=== PATIENT | female | born 1945 | race Caucasian/White ===

== ENCOUNTER → 2017-01-07 | Outpatient (CLI) | payer OTHER ==
[~2017-01-07] MED LIST: ATV1; CLTP; ETODOLAC; EVENING PRIMROSE; GLUCOSAMINE; LAMISIL; LRT5 PO; MULT-506; PHEN37.585; PRLSR20; [UNRECOGNIZED DRUG - OTHER]
[2017-01-07 17:37] LABS: BASO % 0.4 %; BASO ABS # 0.03 K/uL (0-0.2); COMPLETE YES; EOS % 2.4 %; HEMATOCRIT 40.2 % (37-47); IG% 0.1 %; LYMPH % 33.1 %; LYMPH ABS # 2.32 K/uL (1.2-3.4); MEAN CELL VOLUME 94.8 fL (80-100); MEAN CORPUSCULAR HEMOGLOBIN 31.8 pg (25-34); MEAN CORPUSCULAR HGB CONC 33.6 g/dl (32-36); MEAN PLATELET VOLUME 10.5 fL (7.4-10.4); MONO % 8.1 %; NEUT % 55.9 %; PLATELET COUNT 269 K/uL (130-400); RED BLOOD COUNT 4.24 M/uL (4.2-5.4)
[2017-01-07 17:38] LABS: ALT/SGPT 22 U/L (12-78); AST/SGOT 17 U/L (15-37); BLOOD UREA NITROGEN 11 mg/dl (7-18); BUN/CREATININE RATIO 15.6 (10-20); CALCIUM 8.9 mg/dl (8.5-10.1); CARBON DIOXIDE 27 mmol/L (21-32); CHLORIDE 105 mmol/L (98-107); CREATININE 0.71 mg/dl (0.60-1.20); GLUCOSE 86 mg/dl (70-99); POTASSIUM 3.7 mmol/L (3.5-5.1); SODIUM 141 mmol/L (136-145)
[2017-01-07 17:49] LABS: ALKALINE PHOSPHATASE 77 U/L (45-117); CHOLESTEROL 233 mg/dl (0-200); CHOLESTEROL/HDL RATIO 2.5; HDL CHOLESTEROL 93 mg/dl; LDL CHOLESTEROL CALCULATED 125 mg/dl; TRIGLYCERIDES 75 mg/dl (0-150); VERY LOW DENSITY LIPOPROT CALC 15 mg/dl
[2017-01-08 05:47] LABS: ESTIMATED AVERAGE GLUCOSE 131 mg/dl; HA1C FLAG Normal (Normal)
--- NOTE | 2017-01-15 09:41 | CODING QUERY MEDICAL NECESSITY ---
CQSUPPORTING DIAGNOSIS NEEDED A supporting diagnosis is required for the test/procedure performed on this patient in order for us to be reimbursed by the patient's insurance. Please provide a supporting diagnosis for the following test/procedure listed below next to the test name along with your signature. *If there is no additional diagnosis for this patient that would support the following test/procedure please document that below next to the test/procedure. Test(s)/Procedure(s) that require a supporting diagnosis: DOS 01/07/17 VITAMIN D TEST GLYCATED HEMOGLOBIN TEST Provider Signature: Date: Thank you Estefany Taylor Health Information Management Once completed, please kindly fax back to [phone] For questions please call [phone]
== END | disposition home or self-care (01) ==
LOC: C.LABPBG 15:07
PROVIDERS: ATTEND Neuromusculoskeletal Medicine & OMM
DX: Z00.00 Encounter for general adult medical examination without abnormal findings (principal); E55.9 Vitamin D deficiency, unspecified; R73.03 Prediabetes; R73.09 Other abnormal glucose

== ENCOUNTER → 2017-03-23 | Outpatient (CLI) | payer OTHER ==
[2017-03-23 17:30] LABS: BASO % 0.3 %; BASO ABS # 0.02 K/uL (0-0.2); COMPLETE YES; EOS % 2.7 %; HEMATOCRIT 40.8 % (37-47); IG% 0.3 %; LYMPH % 30.6 %; LYMPH ABS # 2.17 K/uL (1.2-3.4); MEAN CORPUSCULAR HEMOGLOBIN 31.5 pg (25-34); MEAN CORPUSCULAR HGB CONC 32.8 g/dl (32-36); MEAN PLATELET VOLUME 10.5 fL (7.4-10.4); MONO % 10.7 %; NEUT % 55.4 %; PLATELET COUNT 293 K/uL (130-400); RED BLOOD COUNT 4.25 M/uL (4.2-5.4); WHITE BLOOD COUNT 7.09 K/uL (4.8-10.8)
== END | disposition home or self-care (01) ==
LOC: C.LABPBG 14:39
PROVIDERS: ATTEND Physician Assistant
DX: R51 Headache (principal)

== ENCOUNTER → 2017-06-09 | Outpatient (CLI) | payer OTHER ==
[2017-06-09 17:57] LABS: BLOOD UREA NITROGEN 13 mg/dl (7-18); BUN/CREATININE RATIO 16.9 (10-20); CALCIUM 9.3 mg/dl (8.5-10.1); CARBON DIOXIDE 28 mmol/L (21-32); CHLORIDE 109 mmol/L (98-107); CREATININE 0.77 mg/dl (0.60-1.20); GLUCOSE 131 mg/dl (70-99); POTASSIUM 3.9 mmol/L (3.5-5.1); SODIUM 142 mmol/L (136-145)
[2017-06-09 18:00] LABS: CHOLESTEROL 220 mg/dl (0-200); CHOLESTEROL/HDL RATIO 3.1; HDL CHOLESTEROL 70 mg/dl; LDL CHOLESTEROL CALCULATED 133 mg/dl; TRIGLYCERIDES 84 mg/dl (0-150); VERY LOW DENSITY LIPOPROT CALC 17 mg/dl
[2017-06-10 06:13] LABS: ESTIMATED AVERAGE GLUCOSE 126 mg/dl; HA1C FLAG Normal (Normal)
== END | disposition home or self-care (01) ==
LOC: C.LABPBG 14:44
PROVIDERS: ATTEND Physician Assistant
DX: Z00.00 Encounter for general adult medical examination without abnormal findings (principal); R73.03 Prediabetes; E66.01 Morbid (severe) obesity due to excess calories; E88.81 Metabolic syndrome and other insulin resistance

== ENCOUNTER → 2018-01-13 | Outpatient (CLI) | payer OTHER ==
[2018-01-13 17:36] LABS: BASO % 0.6 %; BASO ABS # 0.03 K/uL (0-0.2); EOS % 3.9 %; EOS ABS # 0.21 K/uL (0-0.5); HEMATOCRIT 39.5 % (37-47); HEMOGLOBIN 13.2 g/dL (12.0-16.0); IG# 0.01 K/uL (0.00-0.02); LYMPH % 30.7 %; LYMPH ABS # 1.66 K/uL (1.2-3.4); MEAN CELL VOLUME 97.1 fL (80-100); MEAN CORPUSCULAR HEMOGLOBIN 32.4 pg (25-34); MEAN CORPUSCULAR HGB CONC 33.4 g/dl (32-36); MEAN PLATELET VOLUME 10.6 fL (7.4-10.4); MONO % 9.6 %; MONO ABS # 0.52 K/uL (0.11-0.59); NEUT ABS # 2.97 K/uL (1.4-6.5); PLATELET COUNT 293 K/uL (130-400); RED CELL DISTRIBUTION WIDTH CV 13.7 % (11.5-14.5); RED CELL DISTRIBUTION WIDTH SD 48.9 fL (36.4-46.3)
[2018-01-13 17:59] LABS: BLOOD UREA NITROGEN 14 mg/dl (7-18); CALCIUM 9.1 mg/dl (8.5-10.1); CARBON DIOXIDE 27 mmol/L (21-32); CREATININE 0.66 mg/dl (0.60-1.20); GLUCOSE 122 mg/dl (70-99); POTASSIUM 3.9 mmol/L (3.5-5.1); SODIUM 141 mmol/L (136-145)
[2018-01-13 18:03] LABS: CHOLESTEROL 213 mg/dl (0-200); LDL CHOLESTEROL CALCULATED 109 mg/dl
[2018-01-14 06:47] LABS: HEMOGLOBIN A1C 5.9 % (4.5-5.6)
== END | disposition home or self-care (01) ==
LOC: C.LABPBG 11:24
PROVIDERS: ATTEND Family Medicine
DX: R73.03 Prediabetes (principal); E78.5 Hyperlipidemia, unspecified; E55.9 Vitamin D deficiency, unspecified; R07.89 Other chest pain

== ENCOUNTER 2020-06-25 11:48 | Observation (INO) ==
[2020-06-25] MEDS ORDERED: ONDANSETRON INJ 2 MG/ML 2 ML VIAL IV STA (12:09)
[2020-06-25] MEDS ORDERED: SODIUM CHLORIDE 0.9% 500 ML IV SCH (12:15)
--- NOTE | 2020-06-25 12:23 | Emergency Department Note ---
Impression & Plan Closed pelvic ring fracture, Closed compression fracture of lumbar vertebra ED Provider Note NAME: REJI SHERIFF AGE: 74 SEX: F : 1945 ARRIVES VIA: Walk-In INFORMANT: Patient, the patient's daughter ED PROVIDER(S): Stuart Chong DO CHIEF COMPLAINT: Left groin pain HPI: The patient is a 74-year-old female who presented to the emergency department for an evaluation of left groin pain. The patient states that she started noticing left groin pain approximately 1 to 2 weeks ago. The pain became very severe and she followed up with her primary care physician for these complaints. She had radiographic studies obtained which according to her daughter showed multiple compression fractures in the lumbar spine. The patient states the pain is worsened with any movement. She has been noticing that her gait has become much worse and painful to the point where she is unable to ambulate without assistance at this time. She states the pain is mostly in her left groin. She had similar symptoms in the past with sciatica. The patient is scheduled for an MRI but was unable to have the MRI because she needs an open MRI due to her medical issues. The patient denies having any loss of bowel or bladder continence but does complain of numbness down the lateral aspect of the left leg. She denies having any fevers. She does not have any reported trauma. She denies having any chest pain or difficulty breathing. She states that she has no history of primary malignancy in her past. Patient states she was not given any pain medication by her primary care physician. ROS: See above HPI for pertinent positives & negatives. A total of 10 systems reviewed and were otherwise negative. PAST MEDICAL HISTORY: See Below PAST SURGICAL HISTORY: See Below FAMILY HISTORY: See Below SOCIAL HISTORY: See Below HOME MEDICATIONS: See Below ALLERGIES: See Below VITALS: See Below PHYSICAL EXAMINATION: GENERAL: The patient is awake and alert. She is very anxious appearing and appears to be in significant pain. EYES: The conjunctivae are clear. The pupils are round and reactive. EARS, NOSE, MOUTH AND THROAT: The nose is without any evidence of any deformity. Mucous membranes are moist. Tongue is midline. NECK: The neck is nontender and supple. RESPIRATORY: Normal respiratory effort is noted there is no evidence of wheezing rhonchi or rales CARDIOVASCULAR: Regular rate and rhythm noted there no murmurs rubs or gallops normal S1 normal S2. GASTROINTESTINAL: The abdomen is soft. Abdomen is nontender. BACK: No midline tenderness was appreciated. Range of motion does appear intact but does appear to exacerbate the pain in the left groin. MUSCULOSKELETAL/EXTREMITIES: There is no deformity of the left lower extremity. There is no shortening. The patient has extreme pain with any range of motion testing of the left hip. SKIN: There is no obvious evidence of any rash. Pulses are symmetric in both feet. NEUROLOGIC: Patient is awake alert and oriented x3. Patellar tendon reflexes are 1+ bilaterally. Great toe raise is symmetric. Achilles tendon reflexes appears 1+ bilaterally. MEDICAL DECISION MAKING: The patient is a 74-year-old female who presented to the emergency department for an evaluation of severe left groin pain and back pain. The patient was seen by her primary care physician recently and had radiographic studies which did demonstrate multiple compression fractures of the lumbar spine but these were also noted on radiographs from 2018. Her pain continues to worsen and she was presenting to the emergency department today because of severe ongoing pain. She has very severe pain with any ambulation and appears very uncomfortable. She was treated with IV pain medication in the emergency department. Further r adiographic studies were obtained in the emergency department and appear to show that the patient also has a pelvic fracture. She does not complain of any severe back pain at this time and I do feel that her presentation is more consistent with a pelvic fracture. She was still having very severe pain with any ambulation. She has no trauma. For this reason I did discuss her case with the on-call [facility] group. They will evaluate the patient in the emergency department for further management and disposition. Triage Nursing notes reviewed. Prior medical records reviewed Vital Signs: reviewed and remarkable for elevated blood pressure. Differential diagnosis: Musculoskeletal, disc herniation, fracture, metastatic disease, cord compression, discitis, sciatica, cauda equina, infection, aortic disease, renal colic, gastrointestinal, as well as other pathologies. ER treatment provided: See below Diagnostics interpreted by me: ECG: none Cardiac Monitoring: An order was placed for continuous cardiac monitoring. The monitor shows a rate of 95 with rhythm. Laboratory studies: As stated above and show below. Imaging studies: See below Consultation(s): 1400: [facility] was notified about the patient's condition. ED COURSE: Procedures: none PDMP:reviewed and no issues Critical Care: None Past Med/Surg History Medical History Anxiety Arthritis Dyslipidemia GERD without esophagitis Lichen sclerosus Lymphedema Metabolic syndrome Obesity Osteoarthritis of subtalar joint Osteoporosis Prediabetes Sciatica of right side Venous insufficiency (chronic) (peripheral) Vitamin D deficiency Surgical History H/O colonoscopy H/O tubal ligation 1973. History of breast biopsy incisional breast biopsy. Family History Sister Parkinson disease Cardiac disorder Mother Coronary heart disease Cancer Esophagus. Myocardial infarction Father Myocardial infarction Parkinson disease Social History Smoking Status: Never smoker Hx Alcohol Use: No Hx Substance Use: No Preferred Language: Mongolian Communication Ability: Effective Visual Impairment: Partially Limited Hearing Ability: Normal marital status: / Current Living Situation: Alone current occupational status: retired Feels Safe at Home: Yes Dental Care, Regularly: Yes Physical Activity Frequency: Does not Exercise Seatbelt Use: always Sunscreen Use: Yes Allergies Allergies Allergy/AdvReac Type Severity Reaction Status Date / Time peanut Allergy Severe Anaphylaxis Verified 06/13/20 11:11 soy Allergy Intermediate hives Verified 06/13/20 11:11 codeine Allergy Mild hives Verified 06/13/20 11:11 risedronate sodium Allergy Unknown Verified 06/13/20 11:11 [From Actonel] alendronate sodium AdvReac Intermediate myalgia Verified 06/13/20 11:11 [From Fosamax] Home Meds Home Medications Medication Instructions Recorded Confirmed aspirin 81 mg tablet,delayed 81 mg PO DAILY 04/07/19 06/13/20 release cholecalciferol (vitamin D3) 50 2,000 units PO DAILY 04/07/19 06/13/20 mcg (2,000 unit) tablet cyanocobalamin (vitamin B-12) 100 100 mcg PO DAILY tab 04/07/19 06/13/20 mcg tablet fluocinonide 0.05 % topical 1 appln TOP BID PRN 04/07/19 06/13/20 ointment ketoconazole 2 % topical cream 1 appln TOPICAL DAILY gm 04/07/19 06/13/20 omega-3 fatty acids 1,000 mg 1,000 mg PO DAILY 04/07/19 06/13/20 capsule turmeric root extract 500 mg 1,000 mg PO DAILY cap 04/07/19 06/13/20 capsule glucosamine-chondroitin 500 mg-400 1 cap PO BID 07/28/19 06/13/20 mg capsule calcium citrate-vitamin D3 500 mg 2 tab PO DAILY tab 07/29/19 06/13/20 calcium-400 unit chewable tablet triamcinolone acetonide 0.1 % See Rx Instructions TOP DAILY 07/29/19 06/13/20 topical cream Previous Rx's Medication Instructions Recorded compress.stocking,knee,reg,lrg #2 ea 07/07/19 pantoprazole 40 mg tablet,delayed 40 mg PO DAILY #90 tab 09/19/19 release liraglutide 0.6 mg/0.1 mL (18 mg/3 1.8 mg SQ DAILY #9 ml 12/12/19 mL) subcutaneous pen injector metformin 500 mg tablet 500 mg PO DAILY #90 tab 02/27/20 simvastatin 20 mg tablet 20 mg PO DAILY #90 tab 02/27/20 epinephrine 0.3 mg/0.3 mL 0.3 mg IM Q10M PRN #2 ea 05/07/20 injection, auto-injector betamethasone dipropionate 0.05 % See Rx Instructions .ROUTE 06/11/20 topical cream .COMPLEX #45 gram venlafaxine 37.5 mg 37.5 mg PO DAILY #30 cap 06/17/20 capsule,extended release 24 hr baclofen 5 mg tablet 5 mg PO TID PRN #30 tab 06/25/20 Results & Data (ED) Vital Signs Vital Signs - 24 hr 06/25/20 12:02 Temperature 36.9 C Temperature Source Oral Pulse Rate 95 H Respiratory Rate 20 Blood Pressure 172/75 H Blood Pressure Mean 107 Pulse Oximetry 98 Oxygen Delivery Method Room Air Sepsis Recent Fever Within 48 Hours No Sepsis New/Unexplained Change in Mental Status N/A Sepsis Action Taken by Nursing No Action Required Home Medications Current Medication List: was personally reviewed by me Laboratory Data Attestation: I reviewed the patient's lab results. Result diagrams: 06/25/20 12:51 06/25/20 12:51 Lab Results 06/25/20 06/25/20 06/25/20 Range/Units 12:51 12:51 12:51 WBC 6.90 (4.8-10.8) K/uL RBC 4.51 (4.2-5.4) M/uL Hgb 14.1 (12.0-16.0) g/dL Hct 42.1 (37-47) % MCV 93.3 (80-100) fL MCH 31.3 (25-34) pg MCHC 33.5 (32-36) g/dL RDW Std Deviation 48.8 H (36.4-46.3) fL RDW Coeff of Lizzeth 14.2 (11.5-14.5) % Plt Count 288 (130-400) K/uL MPV 9.5 (7.4-10.4) fL Immature Gran % (Auto) 0.1 % Neut % (Auto) 66.2 % Lymph % (Auto) 21.7 % Davison % (Auto) 11.0 % Eos % (Auto) 0.7 % Baso % (Auto) 0.3 % Neut # (Auto) 4.56 (1.4-6.5) K/uL Lymph # (Auto) 1.50 (1.2-3.4) K/uL Davison # (Auto) 0.76 H (0.11-0.59) K/uL Eos # (Auto) 0.05 (0-0.5) K/uL Baso # (Auto) 0.02 (0-0.2) K/uL Immature Gran # (Auto) 0.01 (0.00-0.02) K/uL PT Cancelled INR Cancelled APTT Cancelled PTT Ratio Cancelled Sodium 138 (136-145) mmol/L Potassium 3.8 (3.5-5.1) mmol/L Chloride 106 (98-107) mmol/L Carbon Dioxide 25 (21-32) mmol/L Anion Gap 7.0 (3-11) BUN 12 (7-18) mg/dl Creatinine 0.81 (0.6-1.2) mg/dl Est Cr Clr Drug Dosing Not Reportable Est GFR ( Amer) 83.5 Est GFR (Non-Af Amer) 72.1 BUN/Creatinine Ratio 14.4 (10-20) Glucose 104 H (70-99) mg/dl Calcium 9.8 (8.5-10.1) mg/dl Total Bilirubin 0.8 (0.2-1) mg/dl AST 16 (15-37) U/L ALT 16 (12-78) U/L Alkaline Phosphatase 66 (45-117) U/L Total Protein 8.1 (6.4-8.2) gm/dl Albumin 3.8 (3.4-5.0) gm/dl Globulin 4.3 H (2.5-4.0) gm/dl Albumin/Globulin Ratio 0.9 (0.9-2) Lipase 177 (73-393) U/L Urine Color Urine Appearance (Clear) Urine pH (4.5-7.5) Ur Specific [place] (1.000-1.030) Urine Protein (Negative) Urine Glucose (UA) (Negative) Urine Ketones (Negative) Urine Blood (Negative) Urine Nitrite (Negative) Urine Bilirubin (Negative) Urine Urobilinogen (Negative) Ur Leukocyte Esterase (Negative) Urine WBC (Auto) (0-5) /hpf Urine RBC (Auto) (0-4) /hpf U Hyaline Cast (Auto) (0-5) /lpf U Epithel Cells (Auto) (0-5) /lpf Urine Bacteria (Auto) (Negative) 06/25/20 Range/Units 12:51 WBC (4.8-10.8) K/uL RBC (4.2-5.4) M/uL Hgb (12.0-16.0) g/dL Hct (37-47) % MCV (80-100) fL MCH (25-34) pg MCHC (32-36) g/dL RDW Std Deviation (36.4-46.3) fL RDW Coeff of Lizzeth (11.5-14.5) % Plt Count (130-400) K/uL MPV (7.4-10.4) fL Immature Gran % (Auto) % Neut % (Auto) % Lymph % (Auto) % Davison % (Auto) % Eos % (Auto) % Baso % (Auto) % Neut # (Auto) (1.4-6.5) K/uL Lymph # (Auto) (1.2-3.4) K/uL Davison # (Auto) (0.11-0.59) K/uL Eos # (Auto) (0-0.5) K/uL Baso # (Auto) (0-0.2) K/uL Immature Gran # (Auto) (0.00-0.02) K/uL PT INR APTT PTT Ratio Sodium (136-145) mmol/L Potassium (3.5-5.1) mmol/L Chloride (98-107) mmol/L Carbon Dioxide (21-32) mmol/L Anion Gap (3-11) BUN (7-18) mg/dl Creatinine (0.6-1.2) mg/dl Est Cr Clr Drug Dosing Est GFR ( Amer) Est GFR (Non-Af Amer) BUN/Creatinine Ratio (10-20) Glucose (70-99) mg/dl Calcium (8.5-10.1) mg/dl Total Bilirubin (0.2-1) mg/dl AST (15-37) U/L ALT (12-78) U/L Alkaline Phosphatase (45-117) U/L Total Protein (6.4-8.2) gm/dl Albumin (3.4-5.0) gm/dl Globulin (2.5-4.0) gm/dl Albumin/Globulin Ratio (0.9-2) Lipase (73-393) U/L Urine Color Yellow Urine Appearance Cloudy A (Clear) Urine pH 5.0 (4.5-7.5) Ur Specific [place] 1.016 (1.000-1.030) Urine Protein Negative (Negative) Urine Glucose (UA) Negative (Negative) Urine Ketones 1+ H (Negative) Urine Blood Negative (Negative) Urine Nitrite Negative (Negative) Urine Bilirubin Negative (Negative) Urine Urobilinogen Negative (Negative) Ur Leukocyte Esterase Trace H (Negative) Urine WBC (Auto) 1-5 (0-5) /hpf Urine RBC (Auto) 0-4 (0-4) /hpf U Hyaline Cast (Auto) 1-5 (0-5) /lpf U Epithel Cells (Auto) >30 H (0-5) /lpf Urine Bacteria (Auto) Negative (Negative) Administered Medications Morphine Sulfate (Morphine Sulfate 4 Mg/Ml 1 Ml Carp\Vial) 4 mg IV Q15M PRN PRN Reason: Pain Stop: 07/09/20 12:08 Last Admin: 06/25/20 13:54 Dose: 4 mg Documented by: [id number] Admin: 06/25/20 12:48 Dose: 4 mg Documented by: [id number] Discontinued Medications Sodium Chloride (Nss) 500 mls @ 999 mls/hr IV .Q31M JOCY Stop: 06/25/20 12:45 Last Infusion: 06/25/20 13:18 Dose: 0 mls/hr Documented by: [id number] Admin: 06/25/20 12:47 Dose: 999 mls/hr Documented by: [id number] Ondansetron HCl (Ondansetron Inj 2 Mg/Ml 2 Ml Vial) 4 mg IV NOW STA Stop: 06/25/20 12:10 Last Admin: 06/25/20 12:47 Dose: 4 mg Documented by: [id number] Imaging Data Radiologist's Impression: CT OF THE LUMBAR SPINE CLINICAL HISTORY: Pain. History of compression fracture. COMPARISON STUDY: Lumbar spine radiographs September 07, 2018. TECHNIQUE: Helical axial images of the lumbar spine were obtained. Sagittal and coronal reconstructions were viewed. Automated exposure control was utilized for the study. A dose lowering technique was utilized adhering to the principles of ALARA. FINDINGS: For purposes of numbering on this exam, the L5-S1 disc space is assigned to axial image 238 of 294. There is mild rightward curvature of the lumbar spine. Moderate L2, L4 and L5 compression fractures are chronic. These were shown on radiographs of September 07, 2018. No acute lumbar spine fracture is noted. There is severe multilevel facet arthrosis. There is mild to moderate m ultilevel disc space narrowing and osteophytosis. Old bilateral sacral insufficiency fractures are noted. These have healed. No suspicious osseous lesions are noted. IMPRESSION: 1. No acute lumbar spine fracture or subluxation. 2. Redemonstration of old moderate L2, L4 and L5 compression fractures which were shown on radiographs of September 07, 2018. 2. Old bilateral sacral insufficiency fractures. 2. Severe multilevel facet arthrosis. Moderate multilevel degenerative disc disease. ACT 112: Negative or not required by law. Electronically signed by: Panda Shaikh M.D. 06/25/2020 1:19 PM Dictated: 06/25/20 1310 Transcribed: 06/25/[address] DOSE: 1523.26 mGy.cm HISTORY: left groin pain TECHNIQUE: Multiaxial CT images of the pelvis were performed and reformatted in the sagittal and coronal plane without the use of contrast. A dose lowering technique was utilized adhering to the principles of ALARA. COMPARISON: None. FINDINGS: Nondisplaced fracture within the left inferior pubic ramus which demonstrates mild callus formation consistent with a healing fracture. There is also a subacute fracture within the left superior pubic ramus at the junction of the anterior column of the acetabulum. There is mild soft tissue thickening at this location. This fracture is also nondisplaced. Old right pubic bone and old sacral insufficiency fractures are also noted. No fracture or dislocation within the right or left proximal femur. The visualized pelvic organs are within normal limits. No pelvic free fluid. No hip effusions. Colonic diverticulosis. Please refer to the same day lumbar spine CT for further evaluation of the lumbar spine compression fractures. The bones are osteopenic. IMPRESSION: 1. Subacute/healing nondisplaced left pubic ring fractures. 2. Old, healed right pubic ring and old sacral insufficiency fractures. 3. Please refer to the same day lumbar spine CT for further evaluation of the lumbar spine compression fractures. ACT 112: Negative or not required by law. Electronically signed by: Km Pal M.D. 06/25/2020 1:18 PM Dictated: 06/25/20 1313 Transcribed: 06/25/20 1313 Blood Pressure Blood Pressure Findings: Elevated blood pressure Blood Pressure Disposition: further management by hospitalist Discharge Plan Visit Data Chief Complaint: Back Injury/Pain Stated Complaint: 2 FX IN SPINE,CAN'T WALK ED Provider: Stuart Chong Discharge Problem: Closed pelvic ring fracture, Closed compression fracture of lumbar vertebra Patient Disposition: Being Evaluated by Hospitalist Condition: Good Forms Stand Alone Forms: My [employer] Prescriptions Prescriptions: No Action (DME) compress.stocking,knee,reg,lrg misc See Dose Instructions .ROUTE .MEDSUPPLY Qty: 2 RF: 0 liraglutide 0.6 mg/0.1 mL (18 mg/3 mL) pen injector 1.8 mg SQ DAILY Qty: 9 RF: 3 metformin 500 mg tablet 500 mg PO DAILY Qty: 90 RF: 1 simvastatin 20 mg tablet 20 mg PO DAILY Qty: 90 RF: 1 epinephrine [EpiPen 2-Ty] 0.3 mg/0.3 mL auto-injector 0.3 mg IM Q10M PRN (Reason: anaphylaxis) Qty: 2 RF: 1 betamethasone dipropionate 0.05 % cream See Rx Instructions .ROUTE .COMPLEX Qty: 45 RF: 0 baclofen 5 mg tablet 5 mg PO TID PRN (Reason: muscle spasm) Qty: 30 RF: 2 turmeric root extract 500 mg capsule 1,000 mg PO DAILY RF: 0 aspirin [Adult Aspirin Regimen] 81 mg tablet,delayed release (DR/EC) 81 mg PO DAILY RF: 0 cholecalciferol (vitamin D3) 2,000 unit tablet 2,000 units PO DAILY RF: 0 fluocinonide 0.05 % ointment 1 appln TOP BID PRN (Reason: itching) RF: 0 ketoconazole 2 % cream 1 appln topical DAILY RF: 0 omega-3 fatty acids [Fish Oil Concentrate] 1,000 mg capsule 1,000 mg PO DAILY RF: 0 cyanocobalamin (vitamin B-12) 100 mcg tablet 100 mcg PO DAILY RF: 0 calcium citrate-vitamin D3 500 mg calcium -400 unit tablet,chewable 2 tab PO DAILY RF: 0 venlafaxine 37.5 mg capsule,extended release 24hr 37.5 mg PO DAILY Qty: 30 RF: 2 glucosamine-chondroitin 500-400 mg capsule 1 cap PO BID RF: 0 triamcinolone acetonide 0.1 % cream See Rx Instructions TOP DAILY RF: 0 pantoprazole 40 mg tablet,delayed release (DR/EC) 40 mg PO DAILY Qty: 90 RF: 3 Referrals Referrals: Gillian Lin DO [Primary Care Provider] - Discharge Problem: Closed pelvic ring fracture Qualifiers: Encounter type: initial encounter Qualified Code(s): S32.810A - Multiple fractures of pelvis with stable disruption of pelvic ring, initial encounter for closed fracture Closed compression fracture of lumbar vertebra Qualifiers: Encounter type: initial encounter Lumbar vertebra fracture level: L2 Qualified Code(s): S32.020A - Wedge compression fracture of second lumbar vertebra, initial encounter for closed fracture
[2020-06-25] MEDS: MoRPHine SULFATE 4 MG/ML 1 ML CARP\\VIAL IV PRN ×2 (12:48→13:54)
[2020-06-25 13:05] LABS: Basophils # (auto) 0.02 K/uL (0-0.2); Basophils % (auto) 0.3 %; Eosinophils # (auto) 0.05 K/uL (0-0.5); Eosinophils % (auto) 0.7 %; Hematocrit (blood only) 42.1 % (37-47); Hemoglobin 14.1 g/dL (12.0-16.0); Immature Granulocytes # (auto) 0.01 K/uL (0.00-0.02); Immature Granulocytes % (auto) 0.1 %; Lymphocytes % (auto) 21.7 %; Mean Corpuscular Hemoglobin 31.3 pg (25-34); Mean Corpuscular Hgb Conc 33.5 g/dL (32-36); Mean Corpuscular Volume 93.3 fL (80-100); Mean Platelet Volume 9.5 fL (7.4-10.4); Monocytes # (auto) 0.76 K/uL (0.11-0.59); Neutrophils # (auto) 4.56 K/uL (1.4-6.5); Neutrophils % (auto) 66.2 %; Platelet Count 288 K/uL (130-400); RDW Coefficient of Variation 14.2 % (11.5-14.5); RDW Standard Deviation 48.8 fL (36.4-46.3); Red Blood Count 4.51 M/uL (4.2-5.4)
[2020-06-25 13:15] LABS: Appearance Urine Cloudy (Clear); Bacteria Urine Automated Negative (Negative); Bilirubin Urine Negative (Negative); Blood Urine Negative (Negative); Color Urine Yellow; Epithelial Cell Urine Auto >30 /lpf (0-5); Glucose Urine UA Negative (Negative); Ketones Urine 1+ (Negative); Leukocyte Esterase Urine Trace (Negative); Nitrite Urine Negative (Negative); Protein Urine Negative (Negative); RBC Urine Automated 0-4 /hpf (0-4); Specific Gravity Urine 1.016 (1.000-1.030); Urobilinogen Urine Negative (Negative)
--- NOTE | 2020-06-25 13:20 | CT Scan Report ---
CT OF THE LUMBAR SPINE CLINICAL HISTORY: Pain. History of compression fracture. COMPARISON STUDY: Lumbar spine radiographs September 07, 2018. TECHNIQUE: Helical axial images of the lumbar spine were obtained. Sagittal and coronal reconstruct ions were viewed. Automated exposure control was utilized for the study. A dose lowering technique was utilized adhering to the principles of ALARA. FINDINGS: For purposes of numbering on this exam, the L5-S1 disc space is assigned to axial image 238 of 294. There is mild rightward curvature of the lumbar spine. Moderate L2, L4 and L5 compression fr actures are chronic. These were shown on radiographs of September 07, 2018. No acute lumbar spine fract ure is noted. There is severe multilevel facet arthrosis. There is mild to moderate multilevel disc s pace narrowing and osteophytosis. Old bilateral sacral insufficiency fractures are noted. These have healed. No suspicious osseous lesions are noted. IMPRESSION: 1. No acute lumbar spine fracture or subluxation. 2. Redemonstration of old moderate L2, L4 and L5 compression fractures which were shown on radiograph s of September 07, 2018. 2. Old bilateral sacral insufficiency fractures. 2. Severe multilevel facet arthrosis. Moderate multilevel degenerative disc disease. ACT 112: Negative or not required by law. Electronically signed by: Panda Shaikh M.D. 06/25/2020 1:19 PM
--- NOTE | 2020-06-25 13:20 | CT Scan Report ---
PELVIS CT CT DOSE: 1523.26 mGy.cm HISTORY: left groin pain TECHNIQUE: Multiaxial CT images of the pelvis were performed and reformatted in the sagittal and carlo nal plane without the use of contrast. A dose lowering technique was utilized adhering to the princi ples of PAUL. COMPARISON: None. FINDINGS: Nondisplaced fracture within the left inferior pubic ramus which demonstrates mild callus f ormation consistent with a healing fracture. There is also a subacute fracture within the left superi or pubic ramus at the junction of the anterior column of the acetabulum. There is mild soft tissue th ickening at this location. This fracture is also nondisplaced. Old right pubic bone and old sacral in sufficiency fractures are also noted. No fracture or dislocation within the right or left proximal fe mur. The visualized pelvic organs are within normal limits. No pelvic free fluid. No hip effusions. C olonic diverticulosis. Please refer to the same day lumbar spine CT for further evaluation of the lum bar spine compression fractures. The bones are osteopenic. IMPRESSION: 1. Subacute/healing nondisplaced left pubic ring fractures. 2. Old, healed right pubic ring and old sacral insufficiency fractures. 3. Please refer to the same day lumbar spine CT for further evaluation of the lumbar spine compressio n fractures. ACT 112: Negative or not required by law. Electronically signed by: Km Pal M.D. 06/25/2020 1:18 PM
[2020-06-25 13:22] LABS: Alanine Aminotransferase 16 U/L (12-78); Albumin Level 3.8 gm/dl (3.4-5.0); Aspartate Aminotransferase 16 U/L (15-37); BUN Creatinine Ratio 14.4 (10-20); Blood Urea Nitrogen 12 mg/dl (7-18); Calcium 9.8 mg/dl (8.5-10.1); Carbon Dioxide 25 mmol/L (21-32); Chloride 106 mmol/L (98-107); Est GFR (African American) 83.5; Est GFR (Non-African American) 72.1; Glucose 104 mg/dl (70-99); Lipase 177 U/L (73-393); Potassium 3.8 mmol/L (3.5-5.1); Sodium 138 mmol/L (136-145)
[2020-06-25 13:25] LABS: Albumin Globulin Ratio 0.9 (0.9-2); Alkaline Phosphatase 66 U/L (45-117); Bilirubin,Total 0.8 mg/dl (0.2-1); Globulin 4.3 gm/dl (2.5-4.0); Total Protein 8.1 gm/dl (6.4-8.2)
[2020-06-25 14:23] LABS: Partial Thromboplastin Ratio 0.9; Partial Thromboplastin Time 24.4 Seconds (21.0-31.0); Prothrombin Time 10.9 Seconds (9.0-12.0)
--- NOTE | 2020-06-25 16:05 | History & Physical Report ---
Date of Service June 25, 2020 Assessment & Plan (1) Closed pelvic ring fracture: left sided, intractable pain, will try scheduled tylenol, oxycodone, and lidodern, PT/OT evalation, will consider if rehab is needed (2) Closed compression fracture of lumbar vertebra: does not seem to be causing acute pain, has a history of osteoporosis on prolia, only has received one treatment (3) DEYSI on CPAP: will continue on home settings (4) Dyslipidemia: continue zocor (5) GERD without esophagitis: worsened with ibprofen, will have ppi (6) Prediabetes: continues on victoza and metformin, will also offer ssi and check A1C (7) DVT prophylaxis: Admission and Anticipated Discharge Date Admission Date: [facility] History of Present Illness Primary Care Provider: DO Curt Morse CC from ER notes "74-year-old female who presented to the emergency department for an evaluation of left groin pain. The patient states that she started noticing left groin pain approximately 1 to 2 weeks ago. The pain became very severe and she followed up with her primary care physician for these complaints. She had radiographic studies obtained which according to her daughter showed multiple compression fractures in the lumbar spine. The patient states the pain is worsened with any movement. She has been noticing that her gait has become much worse and painful to the point where she is unable to ambulate without assistance at this time. She states the pain is mostly in her left groin. She had similar symptoms in the past with sciatica. The patient is scheduled for an MRI but was unable to have the MRI because she needs an open MRI due to her medical issues. The patient denies having any loss of bowel or bladder continence but does complain of numbness down the lateral aspect of the left leg. She denies having any fevers. She does not have any reported trauma. She denies having any chest pain or difficulty breathing. She states that she has no history of primary malignancy in her past. Patient states she was not given any pain medication by her primary care physician."" the pt has been trying scheduled tylenol and ibuprofen without help bit with worsening dyspepsia, she has had no melena. 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 Allergies Allergy/AdvReac Type Severity Reaction Status Date / Time peanut Allergy Severe Anaphylaxis Verified 06/25/20 14:09 soy Allergy Intermediate hives Verified 06/25/20 14:09 codeine Allergy Mild hives Verified 06/25/20 14:09 risedronate sodium Allergy Unknown Verified 06/25/20 14:09 [From Actonel] alendronate sodium AdvReac Intermediate myalgia Verified 06/25/20 14:09 [From Fosamax] Home Medications Home Medications Medication Instructions Recorded Confirmed Type aspirin 81 mg tablet,delayed 81 mg PO DAILY 04/07/19 06/25/20 History release cholecalciferol (vitamin D3) 50 2,000 units PO DAILY 04/07/19 06/25/20 History mcg (2,000 unit) tablet cyanocobalamin (vitamin B-12) 100 100 mcg PO DAILY tab 04/07/19 06/25/20 History mcg tablet fluocinonide 0.05 % topical 1 appln TOP BID PRN 04/07/19 06/25/20 History ointment ketoconazole 2 % topical cream 1 appln TOPICAL DAILY gm 04/07/19 06/25/20 History omega-3 fatty acids 1,000 mg 1,000 mg PO DAILY 04/07/19 06/25/20 History capsule turmeric root extract 500 mg 500 mg PO DAILY cap 04/07/19 06/25/20 History capsule compress.stocking,knee,reg,lrg #2 ea 07/07/19 05/21/20 Rx glucosamine-chondroitin 500 mg-400 1 cap PO BID 07/28/19 06/25/20 History mg capsule calcium citrate-vitamin D3 500 mg 2 tab PO DAILY tab 07/29/19 06/25/20 History calcium-400 unit chewable tablet triamcinolone acetonide 0.1 % See Rx Instructions TOP DAILY 07/29/19 06/25/20 History topical cream pantoprazole 40 mg tablet,delayed 40 mg PO DAILY #90 tab 09/19/19 06/25/20 Rx release liraglutide 0.6 mg/0.1 mL (18 mg/3 1.8 mg SQ DAILY #9 ml 12/12/19 06/25/20 Rx mL) subcutaneous pen injector metformin 500 mg tablet 500 mg PO DAILY #90 tab 02/27/20 06/25/20 Rx simvastatin 20 mg tablet 20 mg PO DAILY #90 tab 02/27/20 06/25/20 Rx epinephrine 0.3 mg/0.3 mL 0.3 mg IM Q10M PRN #2 ea 05/07/20 06/25/20 Rx injection, auto-injector betamethasone dipropionate 0.05 % See Rx Instructions .ROUTE 06/11/20 06/25/20 Rx topical cream .COMPLEX #45 gram venlafaxine 37.5 mg 37.5 mg PO DAILY #30 cap 06/17/20 06/25/20 Rx capsule,extended release 24 hr Past Med/Surg History Medical History (Updated 06/25/20 @ 16:04 by Jose M Esteves MD) Anxiety Arthritis Dyslipidemia GERD without esophagitis Lichen sclerosus Lymphedema Metabolic syndrome Obesity Osteoarthritis of subtalar joint Osteoporosis Prediabetes Sciatica of right side Venous insufficiency (chronic) (peripheral) Vitamin D deficiency Surgical History H/O colonoscopy H/O tubal ligation 1973. History of breast biopsy incisional breast biopsy. Family History Sister Parkinson disease Cardiac disorder Mother Coronary heart disease Cancer Esophagus. Myocardial infarction Father Myocardial infarction Parkinson disease Social History Smoking Status: Never smoker Hx Alcohol Use: No Hx Substance Use: No Preferred Language: Bolivian Communication Ability: Effective Visual Impairment: Partially Limited Hearing Ability: Normal Workday Director Required: No Beliefs That Will Affect Care: None marital status: / Current Living Situation: Alone and Significant Other Current Living Situation Comment: lives with s/o current occupational status: retired Other Information That Helps Us Care for You: No Feels Safe at Home: Yes Safety Concerns: Feels Safe At This Time Dental Care, Regularly: Yes Physical Activity Frequency: Does not Exercise Seatbelt Use: always Sunscreen Use: Yes Review of Systems Review of Systems: Mild to moderate distress and fatigue no headache, blurry or double vision no speech or swallowing issues no chest pain, pressure or palpitations no shortness of breath, cough or wheezes no abdominal pain, nausea or vomiting, diarrhea or constipation no dysuria, hematuria or frequency Left anterior groin discomfort worse with movement no shortening or rotation of leg no back pain, CVA tenderness or radicular pain no bruising, bleeding or rashes no focal signs of weakness or numbness or altered sensation no complaints or anxiety or depression. Physical Exam Physical Exam: The patient appeared well nourished and normally developed. Her pain is reasonably well controlled Vital signs as documented. Head exam is normocephalic atraumatic no scleral icterus Neck is without JVD, thyromegaly, or carotid bruits. Lungs are clear to auscultation, no focal loss of breath sounds Cardiac exam, Rhythm is regular.. No murmurs, rubs or gallops. Abdominal exam reveals normal bowel sounds, soft non tender, no masses Extremities are nonedematous and both pedal pulses are normal. She does have left anterior groin pain Neurologic exam is alert and oriented, no focal loss of strength or sensation Skin is without bruises or rashes Psychologically is without concerns for anxiety or depression Results & Data Results & Data ([facility]) Vital Signs (Past 12 Hours) Vital Signs Temp Pulse Pulse Resp BP BP Pulse Ox 06/25/20 14:55 88 191/91 H 95 06/25/20 14:07 85 18 195/106 H 99 06/25/20 14:06 99 06/25/20 12:02 98.4 F 95 H 20 172/[address] 06/25/20 IMPRESSION: 1. Subacute/healing nondisplaced left pubic ring fractures. 2. Old, healed right pubic ring and old sacral insufficiency fractures Lumbar CT 06/25/20 IMPRESSION: 1. No acute lumbar spine fracture or subluxation. 2. Redemonstration of old moderate L2, L4 and L5 compression fractures which were shown on radiographs of September 07, 2018. 3. Old bilateral sacral insufficiency fractures. 4. Severe multilevel facet arthrosis. Moderate multilevel degenerative disc disease. PG Care Time/CCT Total # of Minutes Spent Total Time Spent with Patient: Total time spent is greater than 50% in coord ination of care (as documented) at patient's floor/unit and/or counseling patient: Coding Level of Care Code 39862 OBS Care - Level 2 Diagnoses Closed pelvic ring fracture S32.810A Encounter type: initial encounter Closed compression fracture of lumbar vertebra S32.020A Encounter type: initial encounter Lumbar vertebra fracture level: L2 DEYSI on CPAP G47.33; Z99.89 Dyslipidemia E78.5 GERD without esophagitis K21.9 Prediabetes R73.03 DVT prophylaxis Z29.9 (1) Closed pelvic ring fracture Encounter type: initial encounter Qualified Code(s): S32.810A - Multiple fractures of pelvis with stable disruption of pelvic ring, initial encounter for closed fracture (2) Closed compression fracture of lumbar vertebra Encounter type: initial encounter Lumbar vertebra fracture level: L2 Q ualified Code(s): S32.020A - Wedge compression fracture of second lumbar vertebra, initial encounter for closed fracture
[2020-06-25] MEDS ORDERED: MoRPHine SULFATE 2 MG/ML CARP IV PRN (17:33)
[2020-06-25] MEDS ORDERED: ALUMINUM/MAGNESIUM SUSP 30 ML UDC PO PRN (17:33)
[2020-06-25] MEDS ORDERED: DEXTROSE 50% 50 ML SYRINGE IV PRN (17:33)
[2020-06-25] MEDS ORDERED: MoRPHine SULFATE 4 MG/ML 1 ML CARP\\VIAL IV PRN (17:33)
[2020-06-25] MEDS ORDERED: GLUCOSE 10 TABS/TUBE PO PRN (17:33)
[2020-06-25] MEDS ORDERED: HydrALAZINE HCL 20 MG/ML VIAL IV PRN (17:33)
[2020-06-25] MEDS ORDERED: GLUCOSE 40% GEL 15 GM TUBE PO PRN (17:33)
[2020-06-25] MEDS ORDERED: ONDANSETRON INJ 2 MG/ML 2 ML VIAL IV PRN (17:33)
[2020-06-25] MEDS ORDERED: CARBOHYDRATES FOR HYPOGLYCEMIA PO PRN (17:33)
[2020-06-25] MEDS ORDERED: GLUCAGON FOR INJ 1 MG VIAL SQ PRN (17:33)
[2020-06-25] MEDS ORDERED: PATIENT'S WEIGHT NEEDED SCH (18:00)
[2020-06-25] MEDS ORDERED: Nursing to Pharmacy Communication SCH (18:45)
[2020-06-25] MEDS ORDERED: ENOXAPARIN INJ 40 MG/0.4 ML SYR SQ ONE (19:00)
[2020-06-25] MEDS: LIDOCAINE 5% 1 PATCH TD SCH (19:30)
[2020-06-25] MEDS: ACETAMINOPHEN 500 MG TAB PO SCH (19:32)
[2020-06-25] MEDS: INSULIN ASPART 100 UNITS/ML 3 ML PEN SC SCH ×2 (19:39→21:25)
[2020-06-25] MEDS: PANTOprazole 40 MG TAB PO SCH (21:19)
[2020-06-25] MEDS: GLUCOSAMINE SULFATE 500 MG CAP PO SCH (21:20)
[2020-06-26] MEDS: TRIAMCINOLONE ACET 0.025% CR 15 GM TUBE EXT PRN ×2 (00:02→23:53)
[2020-06-26] MEDS: ACETAMINOPHEN 500 MG TAB PO SCH ×4 (00:03→21:02)
[2020-06-26 05:43] LABS: Estimated Average Glucose 128 mg/dl; Hemoglobin A1C 6.1 % (4.5-5.6)
--- NOTE | 2020-06-26 08:34 | Hospitalist Progress Note ---
Date of Service June 26, 2020 Assessment & Plan (1) Closed pelvic ring fracture: 74-year-old female with a history of DEYSI on CPAP, anxiety, dyslipidemia, obesity, osteoporosis and vitamin D deficiency with multiple previous fractures admitted for groin pain secondary to closed pelvic ring fracture. Closed fracture of left pelvic ring without injury - pathologic fracture Identified on CT pelvis and emergency department. Closed, nondisplaced, healing. Old healing right pubic ring and sacral insufficiency fractures also present. CT L-spine showing old moderate compression fractures of L2, L4, L5. - Likely from osteoporosis. Pain control with 1 g Tylenol every 8, Roxicodone 10 mg every 6 as needed, morphine 2 and 4 mg IV every 2 as needed Orthopedic consult: Medical management, will need rehabilitation PT OT consults Ambulate as tolerated DM 2/metabolic syndrome Continue metformin, liraglutide per home regimen. Sliding scale insulin for high blood sugars. Continue aspirin and statin GERD Continue PPI Anxiety Continue venlafaxine from home regimen Osteoporosis -On Denosumab as outpatient. Continue vitamin D supplementation and calcium multivitamin DVT prophylaxis: Lovenox FEN/GI: Carb count diet CODE STATUS: Full code Dispo: MedSurg, placement to rehab (2) Closed compression fracture of lumbar vertebra: (3) DEYSI on CPAP: (4) Obesity: Admission and Anticipated Discharge Date Admission Date: June 25, 2020 Supervising Physician Co-Signing Physician Notes Resident Physician Supervision Note: I independently interviewed and examined the patient and verified the cantrell history and physical, reviewed labs and image studies, discussed the case with the resident Dr. Domingo and agree with the findings and care plan. Subjective No pain when sitting still in bed. She complains of left-sided leg pain when trying to rollover, raise her left leg, abductor her left leg. She notes that this pain is been getting worse over the last 1 to 2 weeks and denies any traumatic events, falls, any changes that would have caused this to happen. Review of Systems Respiratory: no dyspnea Cardiovascular: no chest pain Musculoskeletal: as per Subjective / HPI and + limited range of motion Physical Exam Physical Exam: Constitutional: obese, in no apparent distress, sitting comfortably in bed. Eyes: EOMI, pupils equal and reactive bilaterally, no scleral icterus Cardiac: RRR, no murmurs, gallops or rubs. Normal S1, S2 Pulm: CTA BL, no wheezes, rhonchi, crackles or rubs, moving air well throughout both lungs Abd: soft, nontender, nondistended, normal bowel sounds, no rebound or guarding Extremities: 2+ peripheral pulses, no edema, unable to ABduct left leg Neuro: no focal deficits, moving all 4 limbs, A&Ox3 Results & Data Results & Data ([facility]) Vital Signs (Past 12 Hours) Vital Signs Temp Pulse Resp BP Pulse Ox 06/26/20 08:31 36.6 C 73 16 138/78 96 06/25/20 23:02 36.7 C 75 16 117/70 94 Laboratory Results WBC 6.90 K/uL (4.8-10.8) 06/25/20 12:51 RBC 4.51 M/uL (4.2-5.4) 06/25/20 12:51 Hgb 14.1 g/dL (12.0-16.0) 06/25/20 12:51 Hct 42.1 % (37-47) 06/25/20 12:51 MCV 93.3 fL (80-100) 06/25/20 12:51 MCH 31.3 pg (25-34) 06/25/20 12:51 MCHC 33.5 g/dL (32-36) 06/25/20 12:51 RDW Std Deviation 48.8 fL (36.4-46.3) H 06/25/20 12:51 RDW Coeff of Lizzeth 14.2 % (11.5-14.5) 06/25/20 12:51 Plt Count 288 K/uL (130-400) 06/25/20 12:51 MPV 9.5 fL (7.4-10.4) 06/25/20 12:51 Immature Gran % (Auto) 0.1 % 06/25/20 12:51 Neut % (Auto) 66.2 % 06/25/20 12:51 Lymph % (Auto) 21.7 % 06/25/20 12:51 [place] % (Auto) 11.0 % 06/25/20 12:51 Eos % (Auto) 0.7 % 06/25/20 12:51 Baso % (Auto) 0.3 % 06/25/20 12:51 Neut # (Auto) 4.56 K/uL (1.4-6.5) 06/25/20 12:51 Lymph # (Auto) 1.50 K/uL (1.2-3.4) 06/25/20 12:51 [place] # (Auto) 0.76 K/uL (0.11-0.59) H 06/25/20 12:51 Eos # (Auto) 0.05 K/uL (0-0.5) 06/25/20 12:51 Baso # (Auto) 0.02 K/uL (0-0.2) 06/25/20 12:51 Immature Gran # (Auto) 0.01 K/uL (0.00-0.02) 06/25/20 12:51 PT 10.9 Seconds (9.0-12.0) 06/25/20 14:02 INR 1.0 (0.9-1.1) 06/25/20 14:02 APTT 24.4 Seconds (21.0-31.0) 06/25/20 14:02 PTT Ratio 0.9 06/25/20 14:02 Sodium 138 mmol/L (136-145) 06/25/20 12:51 Potassium 3.8 mmol/L (3.5-5.1) 06/25/20 12:51 Chloride 106 mmol/L (98-107) 06/25/20 12:51 Carbon Dioxide 25 mmol/L (21-32) 06/25/20 12:51 Anion Gap 7.0 (3-11) 06/25/20 12:51 BUN 12 mg/dl (7-18) 06/25/20 12:51 Creatinine 0.81 mg/dl (0.6-1.2) 06/25/20 12:51 Est Cr Clr Drug Dosing Not Reportable 06/25/20 12:51 Est GFR ( Amer) 83.5 06/25/20 12:51 Est GFR (Non-Af Amer) 72.1 06/25/20 12:51 BUN/Creatinine Ratio 14.4 (10-20) 06/25/20 12:51 Glucose 104 mg/dl (70-99) H 06/25/20 12:51 POC Glucose 103 mg/dl (70-99) H 06/26/20 11:55 Estimat Average Glucose 128 mg/dl 06/25/20 12:51 Hemoglobin A1c 6.1 % (4.5-5.6) H 06/25/20 12:51 Calcium 9.8 mg/dl (8.5-10.1) 06/25/20 12:51 Magnesium 2.3 mg/dl (1.8-2.4) 06/26/20 09:57 Total Bilirubin 0.8 mg/dl (0.2-1) 06/25/20 12:51 AST 16 U/L (15-37) 06/25/20 12:51 ALT 16 U/L (12-78) 06/25/20 12:51 Alkaline Phosphatase 66 U/L (45-117) 06/25/20 12:51 Total Protein 8.1 gm/dl (6.4-8.2) 06/25/20 12:51 Albumin 3.8 gm/dl (3.4-5.0) 06/25/20 12:51 Globulin 4.3 gm/dl (2.5-4.0) H 06/25/20 12:51 Albumin/Globulin Ratio 0.9 (0.9-2) 06/25/20 12:51 Lipase 177 U/L (73-393) 06/25/20 12:51 Urine Color Yellow 06/25/20 12:51 Urine Appearance Cloudy (Clear) A 06/25/20 12:51 Urine pH 5.0 (4.5-7.5) 06/25/20 12:51 Ur Specific [place] 1.016 (1.000-1.030) 06/25/20 12:51 Urine Protein Negative (Negative) 06/25/20 12:51 Urine Glucose (UA) Negative (Negative) 06/25/20 12:51 Urine Ketones 1+ (Negative) H 06/25/20 12:51 Urine Blood Negative (Negative) 06/25/20 12:51 Urine Nitrite Negative (Negative) 06/25/20 12:51 Urine Bilirubin Negative (Negative) 06/25/20 12:51 Urine Urobilinogen Negative (Negative) 06/25/20 12:51 Ur Leukocyte Esterase Trace (Negative) H 06/25/20 12:51 Urine WBC (Auto) 1-5 /hpf (0-5) 06/25/20 12:51 Urine RBC (Auto) 0-4 /hpf (0-4) 06/25/20 12:51 U Hyaline Cast (Auto) 1-5 /lpf (0-5) 06/25/20 12:51 U Epithel Cells (Auto) >30 /lpf (0-5) H 06/25/20 12:51 Urine Bacteria (Auto) Negative (Negative) 06/25/20 12:51 Resident Activity Tracking Resident Involvement: Resident Care Provided Care Provided: Adult Hospital Medicine (1) Closed pelvic ring fracture Encounter type: initial encounter Qualified Code(s): S32.810A - Multiple fractures of pelvis with stable disruption of pelvic ring, initial encounter for closed fracture (2) Closed compression fracture of lumbar vertebra Encounter type: initial encounter Lumbar vertebra fracture level: L2 Qualified Code(s): S32.020A - Wedge compression fracture of second lumbar vertebra, initial encounter for closed fracture
[2020-06-26] MEDS: METFORMIN HCL 500 MG TAB PO SCH (08:54)
[2020-06-26] MEDS: CALCIUM 600MG + VIT D 400 IU TAB PO SCH (08:55)
[2020-06-26] MEDS: ASPIRIN 81 MG ECTAB PO SCH (08:57)
[2020-06-26] MEDS: SIMVASTATIN 20 MG TAB PO SCH (08:57)
[2020-06-26] MEDS: VENLAFAXINE HCL XR 37.5 MG CAPXR PO SCH (08:58)
[2020-06-26] MEDS: CHOLECALCIFEROL 1,000 UNITS 25 MCG TAB PO SCH (08:58)
[2020-06-26] MEDS: ENOXAPARIN INJ 40 MG/0.4 ML SYR SQ SCH ×2 (08:59→21:00)
[2020-06-26] MEDS: PANTOprazole 40 MG TAB PO SCH ×2 (08:59→21:02)
[2020-06-26] MEDS ORDERED: LIRAGLUTIDE 1.8 MG SQ SCH (09:00)
[2020-06-26] MEDS ORDERED: GLUCOSAMINE SULFATE 500 MG CAP PO ONE (09:30)
[2020-06-26] MEDS: INSULIN ASPART 100 UNITS/ML 3 ML PEN SC SCH ×4 (09:38→21:36)
[2020-06-26] MEDS: OXYCODONE HCL IR 5 MG TAB (IMMEDIATE RELEASE) PO PRN (09:42)
[2020-06-26] MEDS: GLUCOSAMINE SULFATE 500 MG CAP PO SCH ×2 (10:54→21:00)
--- NOTE | 2020-06-26 15:09 | Orthopedic Consultation ---
Date of Consultation June 26, 2020 Assessment & Plan (1) Closed pelvic ring fracture: Mrs. Chin has obvious insufficiency fractures due to osteoporosis. She is being treated medically for this. There are no surgical indications for this pelvic ring injury. She can be weightbearing as tolerated. The question remains whether to continue bisphosphonate and/or Prolia. Given the degree of her osteoporosis and the various insufficiency fractures in different stages of healing, I recommend continuing the treatment that she just initiated. She will require physical therapy and Occupational Therapy for gait training. She can follow-up with orthopedics on as-needed basis Present on Admission?: Yes (2) Osteoporosis: History of Present Illness Reason for Consultation: Pelvic ring disruption Attending Physician: Sari Mckeon MD History of Present Illness 74-year-old female with a known history of osteoporosis and insufficiency fractures presents to the emergency room with progressive left groin pain. She denies any recent trauma or falls. She recently initiated osteoporosis treatment with denosumab (Prolia) by her report. She has had 1 injection prior to developing this pain. She states that she attempted using her 's walker however the pain became progressive. She was being worked up by her primary care physician with x-rays as an outpatient. Upon admission and CT demonstrated disruption of the superior pubic rami with evidence of other insufficiency fractures at various stages of healing, including the lumbar spine. She denies any numbness or tingling in the bilateral lower extremities. She denies any loss of bowel or bladder. Allergies Allergy/AdvReac Type Severity Reaction Status Date / Time peanut Allergy Severe Anaphylaxis Verified 06/25/20 14:09 soy Allergy Intermediate hives Verified 06/25/20 14:09 codeine Allergy Mild hives Verified 06/25/20 14:09 risedronate sodium Allergy Unknown Verified 06/25/20 14:09 [From Actonel] alendronate sodium AdvReac Intermediate myalgia Verified 06/25/20 14:09 [From Fosamax] Home Medications Home Medications Medication Instructions Recorded Confirmed Type aspirin 81 mg tablet,delayed 81 mg PO DAILY 04/07/19 06/25/20 History release cholecalciferol (vitamin D3) 50 2,000 units PO DAILY 04/07/19 06/25/20 History mcg (2,000 unit) tablet cyanocobalamin (vitamin B-12) 100 100 mcg PO DAILY tab 04/07/19 06/25/20 History mcg tablet fluocinonide 0.05 % topical 1 appln TOP BID PRN 04/07/19 06/25/20 History ointment ketoconazole 2 % topical cream 1 appln TOPICAL DAILY gm 04/07/19 06/25/20 History omega-3 fatty acids 1,000 mg 1,000 mg PO DAILY 04/07/19 06/25/20 History capsule turmeric root extract 500 mg 500 mg PO DAILY cap 04/07/19 06/25/20 History capsule compress.stocking,knee,reg,lrg #2 ea 07/07/19 05/21/20 Rx glucosamine-chondroitin 500 mg-400 1 cap PO BID 07/28/19 06/25/20 History mg capsule calcium citrate-vitamin D3 500 mg 2 tab PO DAILY tab 07/29/19 06/25/20 History calcium-400 unit chewable tablet triamcinolone acetonide 0.1 % See Rx Instructions TOP DAILY 07/29/19 06/25/20 History topical cream pantoprazole 40 mg tablet,delayed 40 mg PO DAILY #90 tab 09/19/19 06/25/20 Rx release liraglutide 0.6 mg/0.1 mL (18 mg/3 1.8 mg SQ DAILY #9 ml 12/12/19 06/25/20 Rx mL) subcutaneous pen injector metformin 500 mg tablet 500 mg PO DAILY #90 tab 02/27/20 06/25/20 Rx simvastatin 20 mg tablet 20 mg PO DAILY #90 tab 02/27/20 06/25/20 Rx epinephrine 0.3 mg/0.3 mL 0.3 mg IM Q10M PRN #2 ea 05/07/20 06/25/20 Rx injection, auto-injector betamethasone dipropionate 0.05 % See Rx Instructions .ROUTE 06/11/20 06/25/20 Rx topical cream .COMPLEX #45 gram venlafaxine 37.5 mg 37.5 mg PO DAILY #30 cap 06/17/20 06/25/20 Rx capsule,extended release 24 hr Patient History Medical History Anxiety Arthritis Dyslipidemia GERD without esophagitis Lichen sclerosus Lymphedema Metabolic syndrome Obesity Osteoarthritis of subtalar joint Osteoporosis Prediabetes Sciatica of right side Venous insufficiency (chronic) (peripheral) Vitamin D deficiency Surgical History H/O colonoscopy H/O tubal ligation 1973. History of breast biopsy incisional breast biopsy. Family History Sister Parkinson disease Cardiac disorder Mother Coronary heart disease Cancer Esophagus. Myocardial infarction Father Myocardial infarction Parkinson disease Social History Smoking Status: Never smoker Hx Alcohol Use: No Hx Substance Use: No Preferred Language: Tajik Communication Ability: Effective Visual Impairment: Partially Limited Hearing Ability: Normal Search Engineer Required: No Beliefs That Will Affect Care: None marital status: / Current Living Situation: Alone and Significant Other Current Living Situation Comment: lives with s/o current occupational status: retired Other Information That Helps Us Care for You: No Feels Safe at Home: Yes Safety Concerns: Feels Safe At This Time Dental Care, Regularly: Yes Physical Activity Frequency: Does not Exercise Seatbelt Use: always Sunscreen Use: Yes Review of Systems Review of Systems: All systems reviewed & are unremarkable except as noted in HPI & below Physical Exam Physical Exam: Pelvis: She has no pain with pelvic compression. She has equal leg lengths Left lower extremity: She has tenderness about the greater trochanter and about the left groin. She has no pain on logroll. She can activate her knee extensors but cannot perform a straight leg raise due to pain at the groin. She has positive dorsiflexion/plantarflexion/EHL activity. She is neurovascular intact. Right Lower extremity: Symmetric to LLE. Constitutional: well developed, well nourished and + obese; no acute distress and not intoxicated appearing ENMT: external ear and nose normal, oropharynx normal Respiratory: normal respiratory effort; no respiratory distress Cardiovascular: Extremities: normal capillary refill; no edema Skin: no rashes, warm and dry Psychiatric: A+Ox3, euthymic affect Results & Data ([facility]) Vital Signs (Past 12 Hours) Vital Signs Temp Pulse Resp BP Pulse Ox 06/26/20 08:31 36.6 C 73 16 138/[address]: Bone windows on the axial and coronal views of the pelvic CT demonstrate minimally displaced fracture on the left superior pubic rami. There is also evidence of insufficiency fractures of various stages of healing, including the inferior pubic rami on the left. There are evidence of sacral fractures that are nondisplaced and very stages of healing. PG Care Time/CCT Total # of Minutes Spent Total Time Spent with Patient: Total time spent is greater than 50% in coordination of care (as documented) at patient's floor/unit and/or counseling patient: Coding Level of Care Code 40268 Initial Inpt Care Lvl 3 Diagnoses Closed pelvic ring fracture S32.810A Encounter type: initial encounter Osteoporosis M81.0 (1) Closed pelvic ring fracture Encounter type: initial encounter Qualified Code(s): S32.810A - Multiple fractures of pelvis with stable disruption of pelvic ring, initial encounter for closed fracture
[2020-06-26] MEDS: LIDOCAINE 5% 1 PATCH TD SCH (20:57)
[2020-06-27] MEDS: OXYCODONE HCL IR 5 MG TAB (IMMEDIATE RELEASE) PO PRN ×4 (01:17→21:57)
[2020-06-27] MEDS: ACETAMINOPHEN 500 MG TAB PO SCH ×3 (05:28→21:56)
[2020-06-27 06:39] LABS: Hematocrit (blood only) 38.1 % (37-47); Hemoglobin 12.6 g/dL (12.0-16.0); Mean Corpuscular Hgb Conc 33.1 g/dL (32-36); Mean Corpuscular Volume 93.8 fL (80-100); Mean Platelet Volume 9.2 fL (7.4-10.4); Platelet Count 230 K/uL (130-400); RDW Coefficient of Variation 14.3 % (11.5-14.5); RDW Standard Deviation 49.2 fL (36.4-46.3); Red Blood Count 4.06 M/uL (4.2-5.4); White Blood Count 5.11 K/uL (4.8-10.8)
[2020-06-27 07:13] LABS: BUN Creatinine Ratio 24.7 (10-20); Calcium 8.7 mg/dl (8.5-10.1); Creatinine Clr Calc Pharmacy 66.9 ml/min; Est GFR (African American) 87.4; Est GFR (Non-African American) 75.4
[2020-06-27] MEDS: PANTOprazole 40 MG TAB PO SCH ×2 (08:47→21:56)
[2020-06-27] MEDS: METFORMIN HCL 500 MG TAB PO SCH (08:47)
[2020-06-27] MEDS: VENLAFAXINE HCL XR 37.5 MG CAPXR PO SCH (08:48)
[2020-06-27] MEDS: CHOLECALCIFEROL 1,000 UNITS 25 MCG TAB PO SCH (08:48)
[2020-06-27] MEDS: CALCIUM 600MG + VIT D 400 IU TAB PO SCH (08:48)
[2020-06-27] MEDS: ASPIRIN 81 MG ECTAB PO SCH (08:49)
[2020-06-27] MEDS: GLUCOSAMINE SULFATE 500 MG CAP PO SCH ×2 (08:50→21:55)
[2020-06-27] MEDS: INSULIN ASPART 100 UNITS/ML 3 ML PEN SC SCH ×4 (08:57→21:32)
[2020-06-27] MEDS: SIMVASTATIN 20 MG TAB PO SCH (09:15)
[2020-06-27] MEDS: ENOXAPARIN INJ 40 MG/0.4 ML SYR SQ SCH ×2 (09:15→21:54)
--- NOTE | 2020-06-27 11:03 | Hospitalist Progress Note ---
Date of Service June 27, 2020 Assessment & Plan (1) Closed pelvic ring fracture: 74-year-old female with a history of DEYSI on CPAP, anxiety, dyslipidemia, obesity, osteoporosis and vitamin D deficiency with multiple previous fractures admitted for groin pain secondary to closed pelvic ring fracture. Closed fracture of left pelvic ring without injury - pathologic fracture - sharp pain with movement, but able to move to bedside commode with assistance, roll in bed. Identified on CT pelvis and emergency department. Closed, nondisplaced, healing. Old healing right pubic ring and sacral insufficiency fractures also present. CT L-spine showing old moderate compression fractures of L2, L4, L5. - Likely from osteoporosis. Pain control with 1 g Tylenol every 8, Roxicodone increased to 15 mg every 6 as needed, morphine 2 mg IV every 2 hours as needed. Pt has not utilized IV medications thus far. Orthopedic consult: Medical management, will need rehabilitation continue working with PT Osteoporosis -On Denosumab as outpatient. Continue vitamin D supplementation and calcium multivitamin DM 2/metabolic syndrome Continue metformin, liraglutide per home regimen. Sliding scale insulin for high blood sugars. - Continue aspirin and statin GERD Continue PPI Anxiety Continue venlafaxine from home regimen DEYSI on CPAP - continue on home settings DVT prophylaxis: Lovenox FEN/GI: Carb count diet CODE STATUS: Full code Dispo: MedSurg, pain control prior to placement to rehab (2) Closed compression fracture of lumbar vertebra: (3) DEYSI on CPAP: (4) Obesity: Admission and Anticipated Discharge Date Admission Date: June 25, 2020 Supervising Physician Co-Signing Physician Notes Resident Physician Supervision Note: I independently interviewed and examined the patient and verified the cantrell history and physical, reviewed labs and image studies, discussed the case with the resident Dr. Domingo and agree with the findings and care plan. Subjective Continuing to have pain with working with PT and generally trying to move her leg. Review of Systems Constitutional: no fever, no chills, no body aches and no fatigue Respiratory: no cough and no dyspnea Cardiovascular: no chest pain, no dyspnea and no edema Gastrointestinal: no abdominal pain, no nausea, no vomiting, no constipation and no diarrhea/loose stools Physical Exam Physical Exam: Constitutional: obese, in no apparent distress, sitting comfortably in bed. Eyes: EOMI, pupils equal and reactive bilaterally, no scleral icterus Cardiac: RRR, no murmurs, gallops or rubs. Normal S1, S2 Pulm: CTA BL, no wheezes, rhonchi, crackles or rubs, moving air well throughout both lungs Abd: soft, nontender, nondistended, normal bowel sounds, no rebound or guarding Extremities: 2+ peripheral pulses, no edema, unable to ABduct left leg Neuro: no focal deficits, moving all 4 limbs, A&Ox3 Results & Data Results & Data ([facility]) Vital Signs (Past 12 Hours) Vital Signs Temp Pulse Resp BP Pulse Ox 06/27/20 09:20 36.6 C 87 18 134/82 95 06/26/20 23:37 36.9 C 74 18 154/79 H 92 Laboratory Results WBC 5.11 K/uL (4.8-10.8) 06/27/20 06:27 RBC 4.06 M/uL (4.2-5.4) L 06/27/20 06:27 Hgb 12.6 g/dL (12.0-16.0) 06/27/20 06:27 Hct 38.1 % (37-47) 06/27/20 06:27 MCV 93.8 fL (80-100) 06/27/20 06:27 MCH 31.0 pg (25-34) 06/27/20 06:27 MCHC 33.1 g/dL (32-36) 06/27/20 06:27 RDW Std Deviation 49.2 fL (36.4-46.3) H 06/27/20 06:27 RDW Coeff of Lizzeth 14.3 % (11.5-14.5) 06/27/20 06:27 Plt Count 230 K/uL (130-400) 06/27/20 06:27 MPV 9.2 fL (7.4-10.4) 06/27/20 06:27 Immature Gran % (Auto) 0.1 % 06/25/20 12:51 Neut % (Auto) 66.2 % 06/25/20 12:51 Lymph % (Auto) 21.7 % 06/25/20 12:51 [place] % (Auto) 11.0 % 06/25/20 12:51 Eos % (Auto) 0.7 % 06/25/20 12:51 Baso % (Auto) 0.3 % 06/25/20 12:51 Neut # (Auto) 4.56 K/uL (1.4-6.5) 06/25/20 12:51 Lymph # (Auto) 1.50 K/uL (1.2-3.4) 06/25/20 12:51 [place] # (Auto) 0.76 K/uL (0.11-0.59) H 06/25/20 12:51 Eos # (Auto) 0.05 K/uL (0-0.5) 06/25/20 12:51 Baso # (Auto) 0.02 K/uL (0-0.2) 06/25/20 12:51 Immature Gran # (Auto) 0.01 K/uL (0.00-0.02) 06/25/20 12:51 PT 10.9 Seconds (9.0-12.0) 06/25/20 14:02 INR 1.0 (0.9-1.1) 06/25/20 14:02 APTT 24.4 Seconds (21.0-31.0) 06/25/20 14:02 PTT Ratio 0.9 06/25/20 14:02 Sodium 138 mmol/L (136-145) 06/27/20 06:27 Potassium 4.0 mmol/L (3.5-5.1) 06/27/20 06:27 Chloride 107 mmol/L (98-107) 06/27/20 06:27 Carbon Dioxide 25 mmol/L (21-32) 06/27/20 06:27 Anion Gap 6.0 (3-11) 06/27/20 06:27 BUN 19 mg/dl (7-18) H D 06/27/20 06:27 Creatinine 0.78 mg/dl (0.6-1.2) 06/27/20 06:27 Est Cr Clr Drug Dosing 66.9 ml/min 06/27/20 06:27 Est GFR ( Amer) 87.4 06/27/20 06:27 Est GFR (Non-Af Amer) 75.4 06/27/20 06:27 BUN/Creatinine Ratio 24.7 (10-20) H 06/27/20 06:27 Glucose 88 mg/dl (70-99) 06/27/20 06:27 POC Glucose 90 mg/dl (70-99) 06/27/20 11:51 Estimat Average Glucose 128 mg/dl 06/25/20 12:51 Hemoglobin A1c 6.1 % (4.5-5.6) H 06/25/20 12:51 Calcium 8.7 mg/dl (8.5-10.1) 06/27/20 06:27 Magnesium 2.3 mg/dl (1.8-2.4) 06/26/20 09:57 Total Bilirubin 0.8 mg/dl (0.2-1) 06/25/20 12:51 AST 16 U/L (15-37) 06/25/20 12:51 ALT 16 U/L (12-78) 06/25/20 12:51 Alkaline Phosphatase 66 U/L (45-117) 06/25/20 12:51 Total Protein 8.1 gm/dl (6.4-8.2) 06/25/20 12:51 Albumin 3.8 gm/dl (3.4-5.0) 06/25/20 12:51 Globulin 4.3 gm/dl (2.5-4.0) H 06/25/20 12:51 Albumin/Globulin Ratio 0.9 (0.9-2) 06/25/20 12:51 Lipase 177 U/L (73-393) 06/25/20 12:51 Urine Color Yellow 06/25/20 12:51 Urine Appearance Cloudy (Clear) A 06/25/20 12:51 Urine pH 5.0 (4.5-7.5) 06/25/20 12:51 Ur Specific [place] 1.016 (1.000-1.030) 06/25/20 12:51 Urine Protein Negative (Negative) 06/25/20 12:51 Urine Glucose (UA) Negative (Negative) 06/25/20 12:51 Urine Ketones 1+ (Negative) H 06/25/20 12:51 Urine Blood Negative (Negative) 06/25/20 12:51 Urine Nitrite Negative (Negative) 06/25/20 12:51 Urine Bilirubin Negative (Negative) 06/25/20 12:51 Urine Urobilinogen Negative (Negative) 06/25/20 12:51 Ur Leukocyte Esterase Trace (Negative) H 06/25/20 12:51 Urine WBC (Auto) 1-5 /hpf (0-5) 06/25/20 12:51 Urine RBC (Auto) 0-4 /hpf (0-4) 06/25/20 12:51 U Hyaline Cast (Auto) 1-5 /lpf (0-5) 06/25/20 12:51 U Epithel Cells (Auto) >30 /lpf (0-5) H 06/25/20 12:51 Urine Bacteria (Auto) Negative (Negative) 06/25/20 12:51 Resident Activity Tracking Resident Involvement: Resident Care Provided Care Provided: Adult Hospital Medicine (1) Closed pelvic ring fracture Encounter type: initial encounter Qualified Code(s): S32.810A - Multiple fractures of pelvis with stable disruption of pelvic ring, initial encounter for closed fracture (2) Closed compression fracture of lumbar vertebra Encounter type: initial encounter Lumbar vertebra fracture level: L2 Qualified Code(s): S32.020A - Wedge compression fracture of second lumbar vertebra, initial encounter for closed fracture
[2020-06-27] MEDS ORDERED: MoRPHine SULFATE 2 MG/ML CARP IV PRN (14:32)
[2020-06-27] MEDS: LIDOCAINE 5% 1 PATCH TD SCH (19:51)
[2020-06-27] MEDS: TRIAMCINOLONE ACET 0.025% CR 15 GM TUBE EXT PRN (20:26)
[2020-06-28] MEDS: OXYCODONE HCL IR 5 MG TAB (IMMEDIATE RELEASE) PO PRN ×3 (03:52→22:19)
[2020-06-28] MEDS: ACETAMINOPHEN 500 MG TAB PO SCH ×3 (06:03→22:19)
[2020-06-28 07:03] LABS: Creatinine Clr Calc Pharmacy 61.4 ml/min; Est GFR (African American) 78.8
[2020-06-28] MEDS: METFORMIN HCL 500 MG TAB PO SCH (09:17)
[2020-06-28] MEDS: ASPIRIN 81 MG ECTAB PO SCH (09:17)
[2020-06-28] MEDS: PANTOprazole 40 MG TAB PO SCH ×2 (09:17→20:23)
[2020-06-28] MEDS: SIMVASTATIN 20 MG TAB PO SCH (09:17)
[2020-06-28] MEDS: VENLAFAXINE HCL XR 37.5 MG CAPXR PO SCH (09:18)
[2020-06-28] MEDS: CHOLECALCIFEROL 1,000 UNITS 25 MCG TAB PO SCH (09:18)
[2020-06-28] MEDS: GLUCOSAMINE SULFATE 500 MG CAP PO SCH ×2 (09:18→20:23)
[2020-06-28] MEDS: CALCIUM 600MG + VIT D 400 IU TAB PO SCH (09:18)
[2020-06-28] MEDS: ENOXAPARIN INJ 40 MG/0.4 ML SYR SQ SCH ×2 (09:19→20:23)
[2020-06-28] MEDS: POLYETHYLENE (MIRALAX) 17 GM PACK PO SCH (09:23)
--- NOTE | 2020-06-28 09:46 | Discharge Summary ---
Date of Service June 28, 2020 Admission HPI Per Admitting Provider INtake CC from ER notes "74-year-old female who presented to the emergency department for an evaluation of left groin pain. The patient states that she started noticing left groin pain approximately 1 to 2 weeks ago. The pain became very severe and she followed up with her primary care physician for these complaints. She had radiographic studies obtained which according to her daughter showed multiple compression fractures in the lumbar spine. The patient states the pain is worsened with any movement. She has been noticing that her gait has become much worse and painful to the point where she is unable to ambulate without assistance at this time. She states the pain is mostly in her left groin. She had similar symptoms in the past with sciatica. The patient is scheduled for an MRI but was unable to have the MRI because she needs an open MRI due to her medical issues. The patient denies having any loss of bowel or bladder continence but does complain of numbness down the lateral aspect of the left leg. She denies having any fevers. She does not have any reported trauma. She denies having any chest pain or difficulty breathing. She states that she has no history of primary malignancy in her past. Patient states she was not given any pain medication by her primary care physician."" the pt has been trying scheduled tylenol and ibuprofen without help bit with worsening dyspepsia, she has had no melena. 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 Discharge Data Allergies Allergy/AdvReac Type Severity Reaction Status Date / Time peanut Allergy Severe Anaphylaxis Verified 06/25/20 14:09 soy Allergy Intermediate hives Verified 06/25/20 14:09 codeine Allergy Mild hives Verified 06/25/20 14:09 risedronate sodium Allergy Unknown Verified 06/25/20 14:09 [From Actonel] alendronate sodium AdvReac Intermediate myalgia Verified 06/25/20 14:09 [From Fosamax] Consultations 06/25/20 14:07 ED Decision to Admit Stat 06/25/20 17:33 Consult Case Management - Discharge Planning Routine 06/26/20 11:21 Consult Orthopedic Surgery Routine Ordered Studies 06/25/20 12:09 CT lumbar spine wo con Stat 06/25/20 12:11 CT pelvis wo con Stat Hospital Course (1) Closed pelvic ring fracture: 74-year-old female with a history of DEYSI on CPAP, anxiety, dyslipidemia, obesity, osteoporosis and vitamin D deficiency with multiple previous fractures admitted for groin pain secondary to closed pelvic ring fracture. Closed fracture of left pelvic ring without injury - pathologic fracture - sharp pain with movement, but able to move to bedside commode with assistance, roll in bed. Identified on CT pelvis and emergency department. Closed, nondisplaced, healing. Old healing right pubic ring and sacral insufficiency fractures also present. CT L-spine showing old moderate compression fractures of L2, L4, L5. - Likely from osteoporosis. Pain control with 1 g Tylenol every 8, Roxicodone increased to 15 mg every 6 as needed, morphine 2 mg IV every 2 hours as needed. Pt has not utilized IV medications thus far. Orthopedic consult: Medical management, will need rehabilitation continue working with PT Osteoporosis -On Denosumab as outpatient. Continue vitamin D supplementation and calcium m ultivitamin DM 2/metabolic syndrome Continue metformin, liraglutide per home regimen. Sliding scale insulin for high blood sugars. - Continue aspirin and statin GERD Continue PPI Anxiety Continue venlafaxine from home regimen DEYSI on CPAP - continue on home settings DVT prophylaxis: Lovenox FEN/GI: Carb count diet CODE STATUS: Full code Dispo: MedSurg, pain control prior to placement to rehab Discharge Plan Discharge Items Reason For Visit: PELVIC FRACTURE Condition on Discharge: Good Follow-up/Referrals: Gillian Lin DO [Primary Care Provider] - Medications and DC Order Prescriptions: No Action (DME) compress.stocking,knee,reg,lrg misc See Dose Instructions .ROUTE .MEDSUPPLY Qty: 2 RF: 0 liraglutide 0.6 mg/0.1 mL (18 mg/3 mL) pen injector 1.8 mg SQ DAILY Qty: 9 RF: 3 metformin 500 mg tablet 500 mg PO DAILY Qty: 90 RF: 1 simvastatin 20 mg tablet 20 mg PO DAILY Qty: 90 RF: 1 epinephrine [EpiPen 2-Ty] 0.3 mg/0.3 mL auto-injector 0.3 mg IM Q10M PRN (Reason: anaphylaxis) Qty: 2 RF: 1 betamethasone dipropionate 0.05 % cream See Rx Instructions .ROUTE .COMPLEX Qty: 45 RF: 0 turmeric root extract 500 mg capsule 500 mg PO DAILY RF: 0 aspirin [Adult Aspirin Regimen] 81 mg tablet,delayed release (DR/EC) 81 mg PO DAILY RF: 0 cholecalciferol (vitamin D3) 2,000 unit tablet 2,000 units PO DAILY RF: 0 fluocinonide 0.05 % ointment 1 appln TOP BID PRN (Reason: itching) RF: 0 ketoconazole 2 % cream 1 appln topical DAILY RF: 0 omega-3 fatty acids [Fish Oil Concentrate] 1,000 mg capsule 1,000 mg PO DAILY RF: 0 cyanocobalamin (vitamin B-12) 100 mcg tablet 100 mcg PO DAILY RF: 0 calcium citrate-vitamin D3 500 mg calcium -400 unit tablet,chewable 2 tab PO DAILY RF: 0 venlafaxine 37.5 mg capsule,extended release 24hr 37.5 mg PO DAILY Qty: 30 RF: 2 glucosamine-chondroitin 500-400 mg capsule 1 cap PO BID RF: 0 triamcinolone acetonide 0.1 % cream See Rx Instructions TOP DAILY RF: 0 pantoprazole 40 mg tablet,delayed release (DR/EC) 40 mg PO DAILY Qty: 90 RF: 3 Admission Data Admit Date/Time: 06/27/20 12:43 Attending Provider: Sari Mckeon Admit Provider: Jose M Esteves Primary Care Provider: Gillian Lin Other Providers: Jose M Esteves ; Ayana Domingo ; Jason Valdez ; [facility]
[2020-06-28] MEDS: INSULIN ASPART 100 UNITS/ML 3 ML PEN SC SCH ×4 (09:51→22:27)
--- NOTE | 2020-06-28 16:19 | Hospitalist Progress Note ---
Date of Service June 28, 2020 Assessment & Plan (1) Closed pelvic ring fracture: 74-year-old female with a history of DEYSI on CPAP, anxiety, dyslipidemia, obesity, osteoporosis and vitamin D deficiency with multiple previous fractures admitted for groin pain secondary to closed pelvic ring fracture. Closed fracture of left pelvic ring without injury - pathologic fracture - sharp pain with movement, but able to move to bedside commode with assistance, roll in bed. Improving pain management Identified on CT pelvis and emergency department. Closed, nondisplaced, healing. Old healing right pubic ring and sacral insufficiency fractures also present. CT L-spine showing old moderate compression fractures of L2, L4, L5. - Pathologic fracture Likely from osteoporosis. Pain control with 1 g Tylenol every 8, Roxicodone 15 mg q 6 prn. Orthopedic consult: Medical management, will need rehabilitation continue working with PT Osteoporosis - On Denosumab as outpatient. Continue vitamin D supplementation and calcium multivitamin DM 2/metabolic syndrome Continue metformin, liraglutide per home regimen. Sliding scale insulin for high blood sugars. - Continue aspirin and statin GERD Continue PPI Anxiety Continue venlafaxine from home regimen DEYSI on CPAP - continue on home settings DVT prophylaxis: Lovenox FEN/GI: Carb count diet CODE STATUS: Full code Dispo: MedSurg, awaiting placement to rehab per PT/OT Admission and Anticipated Discharge Date Admission Date: June 27, 2020 Supervising Physician Co-Signing Physician Notes Resident Physician Supervision Note: I independently interviewed and examined the patient and verified the cantrell history and physical, reviewed labs and image studies, discussed the case with the resident Dr. Domingo and agree with the findings and care plan. Subjective Much improved today. States pain went down 2 points with increasing oxycodone from 10 mg to 15 mg Q6. Now feels it is manageable around a 4/10 and can "push through" the pain to do PT and walk around. Review of Systems Constitutional: no fever, no chills, no body aches and no fatigue Respiratory: no cough and no dyspnea Cardiovascular: no chest pain, no dyspnea and no edema Gastrointestinal: no abdominal pain, no nausea, no vomiting, no constipation and no diarrhea/loose stools Physical Exam Physical Exam: Constitutional: obese, in no apparent distress, sitting comfortably in bedside chair. Eyes: EOMI, pupils equal and reactive bilaterally, no scleral icterus Cardiac: RRR, no murmurs, gallops or rubs. Normal S1, S2 Abd: soft, nontender, nondistended, normal bowel sounds, no rebound or guarding Extremities: 2+ peripheral pulses, no edema, Neuro: no focal deficits, moving all 4 limbs, A&Ox3 Results & Data Results & Data ([facility]) Vital Signs (Past 12 Hours) Vital Signs Temp Pulse Resp BP Pulse Ox 06/28/20 15:40 36.5 C 66 17 125/78 98 06/28/20 08:43 36.6 C 59 L 20 137/82 99 Laboratory Results WBC 5.11 K/uL (4.8-10.8) 06/27/20 06:27 RBC 4.06 M/uL (4.2-5.4) L 06/27/20 06:27 Hgb 12.6 g/dL (12.0-16.0) 06/27/20 06:27 Hct 38.1 % (37-47) 06/27/20 06:27 MCV 93.8 fL (80-100) 06/27/20 06:27 MCH 31.0 pg (25-34) 06/27/20 06:27 MCHC 33.1 g/dL (32-36) 06/27/20 06:27 RDW Std Deviation 49.2 fL (36.4-46.3) H 06/27/20 06:27 RDW Coeff of [place]izz[place] 14.3 % (11.5-14.5) 06/27/20 06:27 Plt Count 230 K/uL (130-400) 06/27/20 06:27 MPV 9.2 fL (7.4-10.4) 06/27/20 06:27 Immature Gran % (Auto) 0.1 % 06/25/20 12:51 Neut % (Auto) 66.2 % 06/25/20 12:51 Lymph % (Auto) 21.7 % 06/25/20 12:51 [place] % (Auto) 11.0 % 06/25/20 12:51 Eos % (Auto) 0.7 % 06/25/20 12:51 Baso % (Auto) 0.3 % 06/25/20 12:51 Neut # (Auto) 4.56 K/uL (1.4-6.5) 06/25/20 12:51 Lymph # (Auto) 1.50 K/uL (1.2-3.4) 06/25/20 12:51 [place] # (Auto) 0.76 K/uL (0.11-0.59) H 06/25/20 12:51 Eos # (Auto) 0.05 K/uL (0-0.5) 06/25/20 12:51 Baso # (Auto) 0.02 K/uL (0-0.2) 06/25/20 12:51 Immature Gran # (Auto) 0.01 K/uL (0.00-0.02) 06/25/20 12:51 PT 10.9 Seconds (9.0-12.0) 06/25/20 14:02 INR 1.0 (0.9-1.1) 06/25/20 14:02 APTT 24.4 Seconds (21.0-31.0) 06/25/20 14:02 PTT Ratio 0.9 06/25/20 14:02 Sodium 138 mmol/L (136-145) 06/27/20 06:27 Potassium 4.0 mmol/L (3.5-5.1) 06/27/20 06:27 Chloride 107 mmol/L (98-107) 06/27/20 06:27 Carbon Dioxide 25 mmol/L (21-32) 06/27/20 06:27 Anion Gap 6.0 (3-11) 06/27/20 06:27 BUN 19 mg/dl (7-18) H D 06/27/20 06:27 Creatinine 0.85 mg/dl (0.6-1.2) 06/28/20 05:53 Est Cr Clr Drug Dosing 61.4 ml/min 06/28/20 05:53 Est GFR ( Amer) 78.8 06/28/20 05:53 Est GFR (Non-Af Amer) 68.0 06/28/20 05:53 BUN/Creatinine Ratio 24.7 (10-20) H 06/27/20 06:27 Glucose 88 mg/dl (70-99) 06/27/20 06:27 POC Glucose 96 mg/dl (70-99) 06/28/20 12:25 Estimat Average Glucose 128 mg/dl 06/25/20 12:51 Hemoglobin A1c 6.1 % (4.5-5.6) H 08/25/20 12:51 Calcium 8.7 mg/dl (8.5-10.1) 06/27/20 06:27 Magnesium 2.3 mg/dl (1.8-2.4) 06/26/20 09:57 Total Bilirubin 0.8 mg/dl (0.2-1) 06/25/20 12:51 AST 16 U/L (15-37) 06/25/20 12:51 ALT 16 U/L (12-78) 06/25/20 12:51 Alkaline Phosphatase 66 U/L (45-117) 06/25/20 12:51 Total Protein 8.1 gm/dl (6.4-8.2) 06/25/20 12:51 Albumin 3.8 gm/dl (3.4-5.0) 06/25/20 12:51 Globulin 4.3 gm/dl (2.5-4.0) H 06/25/20 12:51 Albumin/Globulin Ratio 0.9 (0.9-2) 06/25/20 12:51 Lipase 177 U/L (73-393) 06/25/20 12:51 Urine Color Yellow 06/25/20 12:51 Urine Appearance Cloudy (Clear) A 06/25/20 12:51 Urine pH 5.0 (4.5-7.5) 06/25/20 12:51 Ur Specific [place] 1.016 (1.000-1.030) 06/25/20 12:51 Urine Protein Negative (Negative) 06/25/20 12:51 Urine Glucose (UA) Negative (Negative) 06/25/20 12:51 Urine Ketones 1+ (Negative) H 06/25/20 12:51 Urine Blood Negative (Negative) 06/25/20 12:51 Urine Nitrite Negative (Negative) 06/25/20 12:51 Urine Bilirubin Negative (Negative) 06/25/20 12:51 Urine Urobilinogen Negative (Negative) 06/25/20 12:51 Ur Leukocyte Esterase Trace (Negative) H 06/25/20 12:51 Urine WBC (Auto) 1-5 /hpf (0-5) 06/25/20 12:51 Urine RBC (Auto) 0-4 /hpf (0-4) 06/25/20 12:51 U Hyaline Cast (Auto) 1-5 /lpf (0-5) 06/25/20 12:51 U Epithel Cells (Auto) >30 /lpf (0-5) H 06/25/20 12:51 Urine Bacteria (Auto) Negative (Negative) 06/25/20 12:51 Resident Activity Tracking Resident Involvement: Resident Care Provided Care Provided: Adult [facility] Medicine (1) Closed pelvic ring fracture Encounter type: initial encounter Qualified Code(s): S32.810A - Multiple fractures of pelvis with stable disruption of pelvic ring, initial encounter for closed fracture
[2020-06-28] MEDS: LIDOCAINE 5% 1 PATCH TD SCH (20:22)
[2020-06-29] MEDS: OXYCODONE HCL IR 5 MG TAB (IMMEDIATE RELEASE) PO PRN ×4 (04:08→22:37)
[2020-06-29] MEDS: ACETAMINOPHEN 500 MG TAB PO SCH ×3 (06:28→22:36)
[2020-06-29 06:55] LABS: Hematocrit (blood only) 42.3 % (37-47); Mean Corpuscular Hemoglobin 31.5 pg (25-34); Mean Corpuscular Hgb Conc 33.1 g/dL (32-36); Mean Corpuscular Volume 95.3 fL (80-100); Mean Platelet Volume 9.8 fL (7.4-10.4); Platelet Count 242 K/uL (130-400); RDW Coefficient of Variation 14.4 % (11.5-14.5); RDW Standard Deviation 50.3 fL (36.4-46.3); Red Blood Count 4.44 M/uL (4.2-5.4); White Blood Count 5.09 K/uL (4.8-10.8)
[2020-06-29 07:21] LABS: BUN Creatinine Ratio 30.3 (10-20); Calcium 9.2 mg/dl (8.5-10.1); Creatinine Clr Calc Pharmacy 68.6 ml/min; Est GFR (African American) 90.2; Est GFR (Non-African American) 77.8
[2020-06-29] MEDS: METFORMIN HCL 500 MG TAB PO SCH (08:30)
[2020-06-29] MEDS: INSULIN ASPART 100 UNITS/ML 3 ML PEN SC SCH ×4 (09:13→21:21)
[2020-06-29] MEDS: GLUCOSAMINE SULFATE 500 MG CAP PO SCH ×2 (09:16→21:19)
[2020-06-29] MEDS: PANTOprazole 40 MG TAB PO SCH ×2 (09:16→21:22)
[2020-06-29] MEDS: POLYETHYLENE (MIRALAX) 17 GM PACK PO SCH (09:16)
[2020-06-29] MEDS: ENOXAPARIN INJ 40 MG/0.4 ML SYR SQ SCH ×2 (09:17→21:19)
[2020-06-29] MEDS: CALCIUM 600MG + VIT D 400 IU TAB PO SCH (09:18)
[2020-06-29] MEDS: CHOLECALCIFEROL 1,000 UNITS 25 MCG TAB PO SCH (09:18)
[2020-06-29] MEDS: VENLAFAXINE HCL XR 37.5 MG CAPXR PO SCH (09:19)
[2020-06-29] MEDS: SIMVASTATIN 20 MG TAB PO SCH (09:19)
[2020-06-29] MEDS: ASPIRIN 81 MG ECTAB PO SCH (09:20)
--- NOTE | 2020-06-29 14:17 | Hospitalist Progress Note ---
Date of Service June 29, 2020 Assessment & Plan (1) Closed pelvic ring fracture: 74-year-old female with a history of DEYSI on CPAP, anxiety, dyslipidemia, obesity, osteoporosis and vitamin D deficiency with multiple previous fractures admitted for groin pain secondary to closed pelvic ring fracture. Closed fracture of left pelvic ring without injury - pathologic fracture - sharp pain with movement, but able to move to bedside commode with assistance, roll in bed. Pain well controlled with current regiment. Identified on CT pelvis and emergency department. Closed, nondisplaced, healing. Old healing right pubic ring and sacral insufficiency fractures also present. CT L-spine showing old moderate compression fractures of L2, L4, L5. - Pathologic fracture likely from osteoporosis. Pain control with 1 g Tylenol every 8, Roxicodone 15 mg q 6 prn. Orthopedic consult: Medical management, will need rehabilitation continue working with PT - [facility], currently attempting to appeal with Dr. Bocanegra. Left message today at [phone] for return call. Osteoporosis - On Denosumab as outpatient. Continue vitamin D supplementation and calcium multivitamin DM 2/metabolic syndrome Continue metformin, liraglutide per home regimen. Sliding scale insulin for high blood sugars. - Continue aspirin and statin GERD Continue PPI Anxiety Continue venlafaxine from home regimen DEYSI on CPAP - continue on home settings DVT prophylaxis: Lovenox FEN/GI: Carb count diet CODE STATUS: Full code Dispo: MedSurg, awaiting placement to rehab per PT/OT (2) Osteoporosis: (3) Anxiety: (4) GERD without esophagitis: (5) DEYSI on CPAP: Admission and Anticipated Discharge Date Admission Date: June 27, 2020 Supervising Physician Co-Signing Physician Notes Resident Physician Supervision Note: I independently interviewed and examined the patient and verified the cantrell history and physical, reviewed labs and image studies, discussed the case with the resident Dr. Sweeney and agree with the findings and care plan. Subjective Patient notes that she is feeling fairly well today. States that she has been able to ambulate to the bathroom more with assistance. Notes that her current pain is well controlled, but can get up to a 7/10 with movement, primarily on the L side. She notes she did have 2 bowel movements overnight and has not noticed constipation with increase of Roxicodone. Review of Systems Constitutional: no fever, no chills, no body aches and no fatigue Respiratory: no cough and no dyspnea Cardiovascular: no chest pain, no dyspnea and no edema Gastrointestinal: no abdominal pain, no nausea, no vomiting, no constipation and no diarrhea/loose stools Musculoskeletal: + joint pain Physical Exam Constitutional: WD/WN, vitals as above no acute distress Respiratory: normal respiratory effort, lungs clear to auscultation Cardiovascular: RRR, no murmur, no edema Gastrointestinal (Abdomen): normal bowel sounds, soft, nontender, no hepatosplenomegaly Musculoskeletal: Gait: normal gait (slow moving ) Skin: no rashes, warm and dry Psychiatric: A+Ox3, euthymic affect Results & Data Results & Data ([facility]) Vital Signs (Past 12 Hours) Vital Signs Temp Pulse Resp BP Pulse Ox 06/29/20 08:00 36.5 C 59 L 16 108/73 95 Resident Activity Tracking Resident Involvement: Resident Care Provided Care Provided: Adult Hospital Medicine (1) Closed pelvic ring fracture Encounter type: initial encounter Qualified Code(s): S32.810A - Multiple fractures of pelvis with stable disruption of pelvic ring, initial encounter for closed fracture
[2020-06-29] MEDS: LIDOCAINE 5% 1 PATCH TD SCH (19:05)
[2020-06-30] MEDS: OXYCODONE HCL IR 5 MG TAB (IMMEDIATE RELEASE) PO PRN ×3 (04:34→18:54)
[2020-06-30] MEDS: ACETAMINOPHEN 500 MG TAB PO SCH ×3 (05:47→21:47)
[2020-06-30] MEDS: METFORMIN HCL 500 MG TAB PO SCH (07:56)
[2020-06-30] MEDS: PANTOprazole 40 MG TAB PO SCH ×2 (08:01→21:47)
[2020-06-30] MEDS: ENOXAPARIN INJ 40 MG/0.4 ML SYR SQ SCH ×2 (08:05→21:48)
[2020-06-30] MEDS: CHOLECALCIFEROL 1,000 UNITS 25 MCG TAB PO SCH (08:06)
[2020-06-30] MEDS: ASPIRIN 81 MG ECTAB PO SCH (08:06)
[2020-06-30] MEDS: GLUCOSAMINE SULFATE 500 MG CAP PO SCH ×2 (08:07→21:47)
[2020-06-30] MEDS: POLYETHYLENE (MIRALAX) 17 GM PACK PO SCH (08:07)
[2020-06-30] MEDS: SIMVASTATIN 20 MG TAB PO SCH (08:07)
[2020-06-30] MEDS: CALCIUM 600MG + VIT D 400 IU TAB PO SCH (08:08)
[2020-06-30] MEDS: VENLAFAXINE HCL XR 37.5 MG CAPXR PO SCH (08:08)
[2020-06-30] MEDS: INSULIN ASPART 100 UNITS/ML 3 ML PEN SC SCH ×4 (08:30→21:41)
--- NOTE | 2020-06-30 09:53 | Hospitalist Progress Note ---
Date of Service June 30, 2020 Assessment & Plan (1) Closed pelvic ring fracture: 74-year-old female with a history of DEYSI on CPAP, anxiety, dyslipidemia, obesity, osteoporosis and vitamin D deficiency with multiple previous fractures admitted for groin pain secondary to closed pelvic ring fracture. Closed fracture of left pelvic ring without injury - pathologic fracture - sharp pain with movement, but able to move to bedside commode with assistance, roll in bed. Pain well controlled with current regiment. Identified on CT pelvis and emergency department. Closed, nondisplaced, healing. Old healing right pubic ring and sacral insufficiency fractures also present. CT L-spine showing old moderate compression fractures of L2, L4, L5. - Pathologic fracture likely from osteoporosis. Pain control with 1 g Tylenol every 8, Roxicodone 15 mg q 6 prn. Orthopedic consult: Medical management, will need rehabilitation continue working with PT - Denied for SNF per [employer], currently attempting to appeal with Dr. Bocanegra. Left message 06/29/20 at [phone] for return call. - Will attempt calling again tomorrow for appeal. - If unable to get placement sooner, will restart PT/OT while inpatient Osteoporosis - On Denosumab as outpatient. Continue vitamin D supplementation and calcium multivitamin DM 2/metabolic syndrome Continue metformin, liraglutide per home regimen. Sliding scale insulin for high blood sugars. - Continue aspirin and statin GERD Continue PPI Anxiety Continue venlafaxine from home regimen DEYSI on CPAP - continue on home settings DVT prophylaxis: Lovenox FEN/GI: Carb count diet CODE STATUS: Full code Dispo: MedSurg, awaiting placement to rehab per PT/OT (2) Osteoporosis: (3) Anxiety: (4) GERD without esophagitis: Admission and Anticipated Discharge Date Admission Date: June 27, 2020 Supervising Physician Co-Signing Physician Notes Resident Physician Supervision Note: I independently interviewed and examined the patient and verified the cantrell history and physical, reviewed labs and image studies, discussed the case with the resident Dr. Sweeney and agree with the findings and care plan. Subjective Patient seen and evaluated while sitting in the chair. Patient noting that she is feeling stronger everyday, but still needs help getting around and using the restroom. She does note that her pain today is a 5/10 with the analgesics and that it is controlling her well. She states she only really has pain with weight bearing or movement of her L leg. No other concerns at this time. Review of Systems Constitutional: no fever and no chills Respiratory: no cough, no dyspnea and no pain on inspiration Cardiovascular: no chest pain, no radiating jaw, neck or arm pain, no dyspnea on exertion and no palpitations Gastrointestinal: no abdominal pain, no nausea and no vomiting Genitourinary: no dysuria Musculoskeletal: + joint pain Physical Exam Constitutional: WD/WN, vitals as above no acute distress Respiratory: normal respiratory effort, lungs clear to auscultation Cardiovascular: RRR, no murmur, no edema Gastrointestinal (Abdomen): normal bowel sounds, soft, nontender, no hepatosplenomegaly Musculoskeletal: Gait: normal gait (slow moving ) Skin: no rashes, warm and dry Psychiatric: A+Ox3, euthymic affect Results & Data Results & Data ([facility]) Vital Signs (Past 12 Hours) Vital Signs Temp Pulse Resp BP Pulse Ox 06/30/20 07:35 36.6 C 65 16 101/65 96 06/29/20 23:11 36.9 C 80 16 108/50 L 94 Resident Activity Tracking Resident Involvement: Resident Care Provided Care Provided: Adult Hospital Medicine (1) Closed pelvic ring fracture Encounter type: initial encounter Qualified Code(s): S32.810A - Multiple fractures of pelvis with stable disruption of pelvic ring, initial encounter for closed fracture
[2020-06-30] MEDS: LIDOCAINE 5% 1 PATCH TD SCH (18:56)
[2020-07-01] MEDS: OXYCODONE HCL IR 5 MG TAB (IMMEDIATE RELEASE) PO PRN ×4 (01:05→20:56)
[2020-07-01] MEDS: ACETAMINOPHEN 500 MG TAB PO SCH ×3 (05:24→20:59)
[2020-07-01] MEDS: INSULIN ASPART 100 UNITS/ML 3 ML PEN SC SCH ×4 (08:52→21:11)
[2020-07-01] MEDS: POLYETHYLENE (MIRALAX) 17 GM PACK PO SCH (09:03)
[2020-07-01] MEDS: SIMVASTATIN 20 MG TAB PO SCH (09:03)
[2020-07-01] MEDS: ENOXAPARIN INJ 40 MG/0.4 ML SYR SQ SCH (09:03)
[2020-07-01] MEDS: ASPIRIN 81 MG ECTAB PO SCH (09:04)
[2020-07-01] MEDS: GLUCOSAMINE SULFATE 500 MG CAP PO SCH ×2 (09:04→20:56)
[2020-07-01] MEDS: METFORMIN HCL 500 MG TAB PO SCH (09:04)
[2020-07-01] MEDS: CALCIUM 600MG + VIT D 400 IU TAB PO SCH (09:04)
[2020-07-01] MEDS: PANTOprazole 40 MG TAB PO SCH ×2 (09:04→20:56)
[2020-07-01] MEDS: CHOLECALCIFEROL 1,000 UNITS 25 MCG TAB PO SCH (09:04)
[2020-07-01] MEDS: VENLAFAXINE HCL XR 37.5 MG CAPXR PO SCH (09:04)
--- NOTE | 2020-07-01 10:43 | Hospitalist Progress Note ---
Date of Service July 01, 2020 Assessment & Plan (1) Closed pelvic ring fracture: 74-year-old female with a history of DEYSI on CPAP, anxiety, dyslipidemia, obesity, osteoporosis and vitamin D deficiency with multiple previous fractures admitted for groin pain secondary to closed pelvic ring fracture. Closed fracture of left pelvic ring without injury - pathologic fracture - sharp pain with movement, but able to move to bedside commode with assistance, roll in bed. Pain well controlled with current regiment. Identified on CT pelvis and emergency department. Closed, nondisplaced, healing. Old healing right pubic ring and sacral insufficiency fractures also present. CT L-spine showing old moderate compression fractures of L2, L4, L5. - Pathologic fracture likely from osteoporosis. Pain control with 1 g Tylenol every 8, Roxicodone 15 mg q 6 prn. Orthopedic consult: Medical management, will need rehabilitation continue working with PT - Denied for SNF per [employer], currently attempting to appeal with Dr. Bocanegra -- Appeal was denied again. - Restarted patient on PT/OT while inpatient currently. Osteoporosis - On Denosumab as outpatient. Continue vitamin D supplementation and calcium multivitamin DM 2/metabolic syndrome Continue metformin, liraglutide per home regimen. Sliding scale insulin for high blood sugars. - Continue aspirin and statin GERD Continue PPI Anxiety Continue venlafaxine from home regimen DEYSI on CPAP - continue on home settings DVT prophylaxis: Lovenox 40mg QD FEN/GI: Carb count diet CODE STATUS: Full code Dispo: MedSurg (2) Osteoporosis: (3) Anxiety: (4) GERD without esophagitis: Admission and Anticipated Discharge Date Admission Date: June 27, 2020 Supervising Physician Co-Signing Physician Notes I personally examined the patient and verified all cantrell points of history and exam, discussed case, and agree with decision making with Dr Sweeney. pt reasonably concerned about going home - notes that she would not do well - VERY concerned about falling (again) and very worried about breaking something (again). is trying hard, is doing better - but right now still doesn't feel safe at home. has a hard time transferring especially. if she had to get up to void in the middle of the night she does not believe she could do so. vitals noted nad heent nc at mmm. walking from bathroom with walker and slow, shuffling gait. breathing unlabored no accessory muscles good effort skin no rashes no pallor or icterus pathologic (osteoporotic) fracture of pelvis - medically stable, however does not have safe disposition. [facility] has made a decision that puts her in an impossibly unsafe situation: a) home, where she is the main caregiver for a with dementia (who therefore would not have the cognitive ability to understand that she is impaired and has her own needs) - where she would be high fall risk and fracture risk (neither, of course, are hypothetical in a woman who has fallen and suffered many fractures) and where she will not be able to have 24/7 safety supervision w transfers/etc, and where she will not be able to have daily therapy b) ongoing in hospital care - which allows her far less therapy than she would have at SNF setting, and has higher risk of nosocomial exposure than in SNF setting, and where (due to smaller confines and less therapy) her risk of worsening deconditioning are also higher --->in [facility]'s decision, they have clearly compromised her care for inexplicable (or if explicable, then highly likely unethical reasons), and did not have any meaningful explanation as to why they had decided this in their [id number] farce of a discussion with dr sweeney. as safety from falls and fractures looms larger than imminent threat from nosocomial infection, we currently have no clear option other than to keep her inpatient (where, of course, her days of stay will be judged - by [facility] - to be medically unnecessary as they could be carried out in another setting SUCH SNF) and do the best we are able with ongoing PT/OT, and mobilization with staff as best as possible. case management pursuing another appeal, and we will ask patient to file a complaint with the state insurance commission. any harm that comes to this kind woman from this unexplainable (and unexplained) failure to provide her with basic necessary care should be met with action taken directly against [facility]. vitamin D level in AM. ongoing prolia w rheumatology. otherwise as per dr sweeney. Subjective Patient noting she is doing well today. Anxious to go to rehab. Currently notes pain is a 5/10 on current pain management. Review of Systems Constitutional: no fever and no chills Respiratory: no cough and no dyspnea Cardiovascular: no chest pain, no radiating jaw, neck or arm pain and no dyspnea Gastrointestinal: no abdominal pain, no nausea and no vomiting Genitourinary: no dysuria Musculoskeletal: + joint pain Physical Exam Constitutional: WD/WN, vitals as above no acute distress Respiratory: normal respiratory effort, lungs clear to auscultation Cardiovascular: RRR, no murmur, no edema Gastrointestinal (Abdomen): normal bowel sounds, soft, nontender, no hepatosplenomegaly Musculoskeletal: Gait: normal gait (slow moving ) Skin: no rashes, warm and dry Psychiatric: A+Ox3, euthymic affect Results & Data Results & Data ([facility]) Vital Signs (Past 12 Hours) Vital Signs Temp Pulse Resp BP BP Pulse Ox 07/01/20 07:38 36.4 C L 59 L 16 122/75 97 06/30/20 23:10 36.8 C 73 16 122/60 97 Resident Activity Tracking Resident Involvement: Resident Care Provided Care Provided: Adult Hospital Medicine (1) Closed pelvic ring fracture Encounter type: initial encounter Qualified Code(s): S32.810A - Multiple fractures of pelvis with stable disruption of pelvic ring, initial encounter for closed fracture
[2020-07-01] MEDS: LIDOCAINE 5% 1 PATCH TD SCH (18:05)
--- NOTE | 2020-07-01 19:25 | Billing Data ---
Date of Service July 01, 2020 Coding Level of Care Code 01145 Subseq Hosp Care Lvl 3
[2020-07-02] MEDS: OXYCODONE HCL IR 5 MG TAB (IMMEDIATE RELEASE) PO PRN ×2 (03:57→11:51)
[2020-07-02] MEDS: ACETAMINOPHEN 500 MG TAB PO SCH ×2 (05:10→13:04)
[2020-07-02 06:40] LABS: Creatinine Clr Calc Pharmacy 84.1 ml/min; Est GFR (African American) 103.7; Est GFR (Non-African American) 89.5
--- NOTE | 2020-07-02 08:10 | Hospitalist Progress Note ---
Date of Service July 02, 2020 Assessment & Plan (1) Closed pelvic ring fracture: 74-year-old female with a history of DEYSI on CPAP, anxiety, dyslipidemia, obesity, osteoporosis and vitamin D deficiency with multiple previous fractures admitted for groin pain secondary to closed pelvic ring fracture. Closed fracture of left pelvic ring without injury - pathologic fracture - sharp pain with movement, but able to move to bedside commode with assistance, roll in bed. Pain well controlled with current regiment. Identified on CT pelvis and emergency department. Closed, nondisplaced, healing. Old healing right pubic ring and sacral insufficiency fractures also present. CT L-spine showing old moderate compression fractures of L2, L4, L5. - Pathologic fracture likely from osteoporosis. Pain control with 1 g Tylenol every 8, Roxicodone 15 mg q 6 prn. Orthopedic consult: Medical management, will need rehabilitation continue working with PT - Denied for SNF per [employer], currently attempting to appeal with Dr. Bocanegra -- Appeal was denied again. - Restarted patient on PT/OT while inpatient currently. - Encouraging patient to stay mobile and active while here. - Case management applying for expedited appeal with [employer]. Osteoporosis - On Denosumab as outpatient. Continue vitamin D supplementation and calcium multivitamin - Vitamin D increased from 2000 to 3000 daily. DM 2/metabolic syndrome Continue metformin, liraglutide per home regimen. Sliding scale insulin for high blood sugars. - Continue aspirin and statin GERD Continue PPI Anxiety Continue venlafaxine from home regimen DEYSI on CPAP - continue on home settings DVT prophylaxis: Lovenox 40mg QD FEN/GI: Carb count diet CODE STATUS: Full code Dispo: MedSurg (2) Osteoporosis: (3) Anxiety: (4) GERD without esophagitis: Admission and Anticipated Discharge Date Admission Date: June 27, 2020 Subjective Patient evaluated while seated today. Noted her pain was a 6/10, but that she had forgotten to take a dose of her pain medication. No concerns otherwise at this time. Daughter will bring in computer today so she can do some work from the hospital. Review of Systems Constitutional: no fever and no chills Respiratory: no cough and no dyspnea Cardiovascular: no chest pain, no radiating jaw, neck or arm pain and no dyspnea Gastrointestinal: no abdominal pain, no nausea and no vomiting Genitourinary: no dysuria Musculoskeletal: + joint pain Physical Exam Constitutional: WD/WN, vitals as above no acute distress Respiratory: normal respiratory effort, lungs clear to auscultation Cardiovascular: RRR, no murmur, no edema Gastrointestinal (Abdomen): normal bowel sounds, soft, nontender, no hepatosplenomegaly Musculoskeletal: Gait: normal gait (slow moving ) Skin: no rashes, warm and dry Psychiatric: A+Ox3, euthymic affect Results & Data Results & Data ([facility]) Vital Signs (Past 12 Hours) Vital Signs Temp Pulse Resp BP Pulse Ox 07/01/20 23:05 36.5 C 61 14 104/65 96 Resident Activity Tracking Resident Involvement: Resident Care Provided Care Provided: Adult Hospital Medicine (1) Closed pelvic ring fracture Encounter type: initial encounter Qualified Code(s): S32.810A - Multiple fractures of pelvis with stable disruption of pelvic ring, initial encounter for closed fracture
[2020-07-02] MEDS ORDERED: CHOLECALCIFEROL 1,000 UNITS 25 MCG TAB PO SCH (09:00)
[2020-07-02] MEDS ORDERED: ENOXAPARIN INJ 40 MG/0.4 ML SYR SQ SCH (09:00)
[2020-07-02] MEDS: PANTOprazole 40 MG TAB PO SCH (09:28)
[2020-07-02] MEDS: METFORMIN HCL 500 MG TAB PO SCH (09:28)
[2020-07-02] MEDS: GLUCOSAMINE SULFATE 500 MG CAP PO SCH (09:28)
[2020-07-02] MEDS: VENLAFAXINE HCL XR 37.5 MG CAPXR PO SCH (09:28)
[2020-07-02] MEDS: ASPIRIN 81 MG ECTAB PO SCH (09:28)
[2020-07-02] MEDS: CALCIUM 600MG + VIT D 400 IU TAB PO SCH (09:28)
[2020-07-02] MEDS: SIMVASTATIN 20 MG TAB PO SCH (09:29)
[2020-07-02] MEDS: POLYETHYLENE (MIRALAX) 17 GM PACK PO SCH (09:29)
[2020-07-02] MEDS: INSULIN ASPART 100 UNITS/ML 3 ML PEN SC SCH ×2 (09:45→12:58)
--- NOTE | 2020-07-02 14:00 | Discharge Summary ---
Date of Service July 02, 2020 Admission HPI Per Admitting Provider INtake CC from ER notes "74-year-old female who presented to the emergency department for an evaluation of left groin pain. The patient states that she started noticing left groin pain approximately 1 to 2 weeks ago. The pain became very severe and she followed up with her primary care physician for these complaints. She had radiographic studies obtained which according to her daughter showed multiple compression fractures in the lumbar spine. The patient states the pain is worsened with any movement. She has been noticing that her gait has become much worse and painful to the point where she is unable to ambulate without assistance at this time. She states the pain is mostly in her left groin. She had similar symptoms in the past with sciatica. The patient is scheduled for an MRI but was unable to have the MRI because she needs an open MRI due to her medical issues. The patient denies having any loss of bowel or bladder continence but does complain of numbness down the lateral aspect of the left leg. She denies having any fevers. She does not have any reported trauma. She denies having any chest pain or difficulty breathing. She states that she has no history of primary malignancy in her past. Patient states she was not given any pain medication by her primary care physician."" the pt has been trying scheduled tylenol and ibuprofen without help bit with worsening dyspepsia, she has had no melena. 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 Her pain is reasonably well controlled Vital signs as documented. Head exam is normocephalic atraumatic no scleral icterus Neck is without JVD, thyromegaly, or carotid bruits. Lungs are clear to auscultation, no focal loss of breath sounds Cardiac exam, Rhythm is regular.. No murmurs, rubs or gallops. Abdominal exam reveals normal bowel sounds, soft non tender, no masses Extremities are nonedematous and both pedal pulses are normal. She does have left anterior groin pain Neurologic exam is alert and oriented, no focal loss of strength or sensation Skin is without bruises or rashes Psychologically is without concerns for anxiety or depression Principal Diagnosis Closed fracture of left pelvic ring without injury in the setting of osteporosis complicated by DMII & DEYSI & obesity Discharge Exam Constitutional: WD/WN, vitals as above no acute distress Respiratory: normal respiratory effort, lungs clear to auscultation Cardiovascular: RRR, no murmur, no edema Gastrointestinal (Abdomen): normal bowel sounds, soft, nontender, no hepatosplenomegaly Musculoskeletal: Gait: normal gait (slow moving ) Skin: no rashes, warm and dry Psychiatric: A+Ox3, euthymic affect Discharge Data Allergies Allergy/AdvReac Type Severity Reaction Status Date / Time peanut Allergy Severe Anaphylaxis Verified 06/25/20 14:09 soy Allergy Intermediate hives Verified 06/25/20 14:09 codeine Allergy Mild hives Verified 06/25/20 14:09 risedronate sodium Allergy Unknown Verified 06/25/20 14:09 [From Actonel] alendronate sodium AdvReac Intermediate myalgia Verified 06/25/20 14:09 [From Fosamax] Consultations 06/25/20 14:07 ED Decision to Admit Stat 06/25/20 17:33 Consult Case Management - Discharge Planning Routine 06/26/20 11:21 Consult Orthopedic Surgery Routine Ordered Studies 06/25/20 12:09 CT lumbar spine wo con Stat 06/25/20 12:11 CT pelvis wo con Stat Hospital Course (1) Closed pelvic ring fracture: 74-year-old female with a history of DEYSI on CPAP, anxiety, dyslipidemia, obesity, osteoporosis and vitamin D deficiency with multiple previous fractures admitted for groin pain secondary to closed pelvic ring fracture. Closed fracture of left pelvic ring without injury - pathologic fracture Identified on CT pelvis and emergency department. Closed, nondisplaced, healing. Old healing right pubic ring and sacral insufficiency fractures also present. CT L-spine showing old moderate compression fractures of L2, L4, L5. Orthopedic surgery was consulted who recommended medical management. Given the patient sustained a fracture with minimal force from a fall she has been diagnosed with osteoporosis. - sharp pain with movement, but able to move to bedside commode with assistance, roll in bed. Pain well controlled with current regiment. Pain well controled with 1 g Tylenol every q8h, Roxicodone 15 mg q6h prn. - Accepted for SNF - Pt recieved daily pt while hospitalized contiue to Encourage patient to stay mobile and active while here. Osteoporosis - On Denosumab as outpatient. Continue vitamin D supplementation and calcium multivitamin - Vitamin D increased from 1999 to 3000 daily. - pcp t/c f/u vit D level in 3 mos DM 2/metabolic syndrome Continue metformin, liraglutide per home regimen. Sliding scale insulin for high blood sugars. - Continue aspirin and statin GERD Continue PPI Anxiety Continue venlafaxine from home regimen DEYSI on CPAP - continue on home settings DVT prophylaxis: Lovenox 40mg QD FEN/GI: Carb count diet CODE STATUS: Full code Dispo: SNF (2) Osteoporosis: (3) Anxiety: (4) GERD without esophagitis: Total Time Total Time Spent Total Time Spent (In Minutes): <30 Discharge Plan Discharge Items Patient Disposition: Transfer Half-Way Fac Reason For Visit: PELVIC FRACTURE Discharge Diagnosis: Pelvic fracture Condition on Discharge: Good Activity: As commented below Non-emergency contact: Primary Care Provider Call non-emergency contact if: you have any medication questions and your pain is worsening Follow-up/Referrals: Gillian Lin DO [Primary Care Provider] - Diet: Regular Addtl Attending Provider Instructions: 74-year-old female with a history of DEYSI on CPAP, anxiety, dyslipidemia, obesity, osteoporosis and vitamin D deficiency with multiple previous fractures admitted for groin pain secondary to closed pelvic ring fracture. Closed fracture of left pelvic ring without injury - pathologic fracture Identified on CT pelvis and emergency department. Closed, nondisplaced, healing. Old healing right pubic ring and sacral insufficiency fractures also present. CT L-spine showing old moderate compression fractures of L2, L4, L5. Orthopedic surgery was consulted who recommended medical management. Given the patient sustained a fracture with minimal force from a fall she has been diagnosed with osteoporosis. - sharp pain with movement, but able to move to bedside commode with assistance, roll in bed. Pain well controlled with current regiment. Pain well controled with 1 g Tylenol every q8h, Roxicodone 15 mg q6h prn. - Accepted for SNF - Pt recieved daily pt while hospitalized contiue to Encourage patient to stay mobile and active while here. Osteoporosis - On Denosumab as outpatient. Continue vitamin D supplementation and calcium multivitamin - Vitamin D increased from 2000 to 3000 daily. - pcp t/c f/u vit D level in 3 mos DM 2/metabolic syndrome Continue metformin, liraglutide per home regimen. Sliding scale insulin for high blood sugars. - Continue aspirin and statin GERD Continue PPI Anxiety Continue venlafaxine from home regimen DEYSI on CPAP - continue on home settings DVT prophylaxis: Lovenox 40mg QD FEN/GI: Carb count diet CODE STATUS: Full code Dispo: SNF You were admitted to the hospital for left-sided groin pain found to be secondary to a closed pelvic rim fracture on the left side. The CT scan the diagnosis also found a closed healing right sided pelvic rim fracture from some unknown prior time. Your L2-L3 and L4 vertebrae also had stable compression fractures that were found on imaging. You were seen by the orthopedic service and they determined that you did not need surgery at this time that medical management would be best to allow these fractures to heal. Continue taking the Tylenol 1 g every 8 hours for a maximum of 3 g/day in order to control your baseline pain. You can use the oxycodone that was sent for you to control the breakthrough pain that you have with doing PT exercises and more painful activities. As you gain more strength and are more comfortable doing various exercises and movements you can either space out how frequently you take the oxycodone or decrease the dose that you take. It is also crucial to your improvement that you continue taking the Prolia and calcium and vitamin D supplementations to help strengthen your bones and mon the osteoporosis. Performing resistance exercises such as gentle weight lifting can tremendously help your bone to rebuild itself and become stronger in the future. If your pain gets acutely worse or you have any concerns please contact your primary care provider. Pending Studies at Discharge: No Stand-Alone Forms: My [facility] Skilled Items Patient informed of condition?: Yes DNR: No Discharge Level of Care: Acute rehab Communicable Disease: No Discharge Prognosis: Improving Lines: None Urinary Catheter: No Medications and DC Order Prescriptions: New polyethylene glycol 3350 [Miralax] 17 gram Powder In Packet 17 g PO DAILY 30 Days RF: 0 MAG-AL 200-200 mg/5 mL Suspension 30 ml PO Q6H PRN (Reason: dyspepsia) 30 Days RF: 0 Continued (DME) compress.stocking,knee,reg,lrg misc See Dose Instructions .ROUTE .MEDSUPPLY Qty: 2 RF: 0 liraglutide 0.6 mg/0.1 mL (18 mg/3 mL) pen injector 1.8 mg SQ DAILY Qty: 9 RF: 3 metformin 500 mg tablet 500 mg PO DAILY Qty: 90 RF: 1 simvastatin 20 mg tablet 20 mg PO DAILY Qty: 90 RF: 1 epinephrine [EpiPen 2-Ty] 0.3 mg/0.3 mL auto-injector 0.3 mg IM Q10M PRN (Reason: anaphylaxis) Qty: 2 RF: 1 betamethasone dipropionate 0.05 % cream See Rx Instructions .ROUTE .COMPLEX Qty: 45 RF: 0 turmeric root extract 500 mg capsule 500 mg PO DAILY RF: 0 aspirin [Adult Aspirin Regimen] 81 mg tablet,delayed release (DR/EC) 81 mg PO DAILY RF: 0 cholecalciferol (vitamin D3) 2,000 unit tablet 2,000 units PO DAILY RF: 0 fluocinonide 0.05 % ointment 1 appln TOP BID PRN (Reason: itching) RF: 0 ketoconazole 2 % cream 1 appln topical DAILY RF: 0 omega-3 fatty acids [Fish Oil Concentrate] 1,000 mg capsule 1,000 mg PO DAILY RF: 0 cyanocobalamin (vitamin B-12) 100 mcg tablet 100 mcg PO DAILY RF: 0 calcium citrate-vitamin D3 500 mg calcium -400 unit tablet,chewable 2 tab PO DAILY RF: 0 venlafaxine 37.5 mg capsule,extended release 24hr 37.5 mg PO DAILY Qty: 30 RF: 2 glucosamine-chondroitin 500-400 mg capsule 1 cap PO BID RF: 0 triamcinolone acetonide 0.1 % cream See Rx Instructions TOP DAILY RF: 0 pantoprazole 40 mg tablet,delayed release (DR/EC) 40 mg PO DAILY Qty: 90 RF: 3 Discharge Orders: Discharge Order (Routine); Ordered 07/02/20 Ordered By: Franklin Evans Admission Data Admit Date/Time: 06/27/20 12:43 Attending Provider: Josiah Teixeira Admit Provider: Jose M Esteves Primary Care Provider: Gillian Lin Other Providers: Jose M Esteves ; Ayana Domingo ; Jason Valdez ; Hakeem Ruvalcaba ; Sari Mckeon Other Interventions: Discharge Summary Assessment (RN) Last Done: 07/02/20 14:43 Supervising Physician Co-Signing Physician Notes I personally examined the patient and verified all cantrell points of history and exam, discussed case, and agree with decision making with Dr Sweeney. feeling ok. no new complaints later informed that SNF approved. vitals ntoed nad heent nc at mmm breathing unlabored no accessory muscles good effort skin no rashes no pallor or icterus osteoporotic pelvic fx - for SNF/rehab emphasis. D increased. ongoing f/u at [facility] for osteoporosis management stable for SNF, grateful for her well-being that insurance decision was changed to allow her appropriate rehab. Resident Activity Tracking Resident Involvement: Resident Care Provided Care Provided: Adult Hospital Medicine
--- NOTE | 2020-07-02 20:08 | Billing Data ---
Date of Service July 02, 2020 Coding Level of Care Code D/C Day Management <30 mins
== END 2020-07-02 16:31 ==
LOC: 3N 11:48 → ED 11:48 → SUATTDRO 15:54 → 3N 16:26 → SUATTDRO 06-27 12:43